=== PATIENT | female | born 2005 | race Caucasian/White ===

== ENCOUNTER 2024-11-20 11:49 | Outpatient (OUT) | payer BC, SELFPAY ==
[2024-11-20 12:49] LABS: BOX Test Reference Lab UNITY; BOX Test Sent Out UNITY
[2024-11-20 12:50] LABS: Basophils Percent Auto 0.3 % (0.2-2.0); Eosinophils Absolute Auto 0.1 10^3/uL (0.0-0.7); Eosinophils Percent Auto 0.9 % (0.9-7.0); Hematocrit 35.7 % (36.0-48.0); Hemoglobin 12.5 g/dL (12.0-16.0); Immature Granulocytes Abs Auto 0.06 10^3/uL (0.00-0.03); Immature Granulocytes Pct Auto 0.5 % (0.0-0.5); Lymphocytes Absolute Auto 2.4 10^3/uL (1.2-3.8); Lymphocytes Percent Auto 19.2 % (20.5-60.0); Mean Corpuscular Hemoglobin 30.8 pg (26.7-34.0); Mean Corpuscular Volume 87.9 fL (81.0-99.0); Mean Platelet Volume 11.7 fL (9.5-13.5); Monocytes Absolute Auto 0.7 10^3/uL (0.3-0.8); Monocytes Percent Auto 5.6 % (1.7-12.0); Neutrophils Percent Auto 73.5 % (43.0-75.0); Platelet Count 210 10^3/uL (150-450); Red Blood Count 4.06 10^6/uL (4.20-5.40); Red Cell Distribution Width 12.6 % (11.0-15.0); White Blood Count 12.2 10^3/uL (4.0-11.0)
[2024-11-20 13:03] LABS: Amphetamine Screen Urine NEGATIVE (NEGATIVE); Barbiturates Screen Urine NEGATIVE (NEGATIVE); Benzodiazepines Screen Urine NEGATIVE (NEGATIVE); Buprenorphine Screen Urine NEGATIVE (NEGATIVE); Cannabinoid Screen Urine POSITIVE (NEGATIVE); Cocaine Screen Urine NEGATIVE (NEGATIVE); Methadone Screen Urine NEGATIVE (NEGATIVE); Methamphetamines Screen Urine NEGATIVE (NEGATIVE); Opiate Screen Urine NEGATIVE (NEGATIVE); Oxycodone Screen Urine NEGATIVE (NEGATIVE); Phencyclidine Screen Urine NEGATIVE (NEGATIVE); Tricyclic Antidepressant Urine NEGATIVE (NEGATIVE)
[2024-11-20 14:19] LABS: Estimated Average Glucose 94 mg/dL; Glycohemoglobin A1C 4.9 % (4.5-6.2)
[2024-11-21 06:08] LABS: HBsAg Screen Negative (Negative); HCV Ab Non Reactive (Non Reactive); HIV Ab/p24 Ag Screen Non Reactive (Non Reactive); Rubella Antibodies, IgG 5.66 index (Immune >0.99)
[2024-11-21 12:09] LABS: Rapid Plasma Reagin, Quant Non Reactive titer (NonRea<1:1)
[2024-11-24 10:12] LABS: Cannabinoid Positive (.); Carboxy THC Conf, MS, UR >750 ng/mL (Cutoff=10)
== END 2024-11-20 11:50 | disposition home or self-care (01) ==
LOC: LAB 11:57
PROVIDERS: Visit Provider Obstetrics & Gynecology
DX: Z34.01 Encounter for supervision of normal first pregnancy, first trimester (principal); Z36.0 Encounter for antenatal screening for chromosomal anomalies; N92.6 Irregular menstruation, unspecified
CPT/HCPCS: 36415; 80307; 80349; 83036; 85025; 86592; 86762; 86803; 86850; 86900; 86901; 87086; 87340; 87389

== ENCOUNTER 2024-12-18 18:08 | Outpatient (REF) | payer BC, SELFPAY ==
--- OUTSIDE RECORDS SUMMARY | 2024-12-18 18:29 | XMS_ITS | CCD ---
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 and neck pain that she sustained yesterday morning. Patient states that she was in an argument with her boyfriend when she fell to the ground crying but instead of hitting the floor she hit her head on the metal bed frame. Reportedly had a loss of consciousness of no more than 30 seconds. Endorses a headache and some blurred vision as well as vomiting. Denies weakness, chest pain, shortness of breath, abdominal pain, bilateral upper extremity pain/weakness/paresthe meghana. PAST MEDICAL HISTORY Diagnosis Date - ADHD (attention deficit hyperactivity disorder) - Depression History reviewed. No pertinent surgical history. No family history on file. Social History Tobacco Use - Smoking status: Some Days Packs/day: .1 Types: Cigarettes - Smokeless tobacco: Never Vaping Use - Vaping Use: current everyday user - Substances: Nicotine - Devices: Disposable Substance and Sexual Activity - Alcohol use: Not Currently Comment: occasionally - Drug use: Yes Types: Marijuana - Sexual activity: Yes Partners: Male control/protection: I.U.D. ALLERGIES Allergen Reactions - Penicillins Anaphylaxis - Sulfa (Sulfonamide * Anaphylaxis Review of Systems Constitutional: Negative for fever. Respiratory: Negative for shortness of breath. Cardiovascular: Negative for chest pain. Gastrointestinal: Positive for nausea and vomiting. Negative for abdominal pain. Genitourinary: Negative. Musculoskeletal: Negative. Skin: Negative. Neurological: Positive for headaches. All other systems reviewed and are negative. Physical Exam Vitals [08/14/23 1212] BP Pulse Temp Temp src Resp SpO2 Weight Height 142/70 63 36.7 ?C (98 ?F) Temporal 17 99 % 70.3 kg (155 lb) 1.651 m (5' 5 ) Physical Exam Vitals and nursing note reviewed. Constitutional: General: She is not in acute distress. Appearance: Normal appearance. She is well-developed. She is not ill-appearing, toxic-appearing or diaphoretic. HENT: Head: Normocephalic. Contusion (forehead) present. No raccoon eyes, Shannon's sign or abrasion. Jaw: There is normal jaw occlusion. Right Ear: Hearing, tympanic membrane, ear canal and external ear normal. No hemotympanum. Left Ear: Hearing, tympanic membrane, ear canal and external ear normal. No hemotympanum. Nose: Nose normal. No nasal deformity or signs of injury. Right Nostril: No foreign body, epistaxis, septal hematoma or occlusion. Left Nostril: No foreign body, septal hematoma or occlusion. Mouth/Throat: Mouth: No injury or lacerations. Dentition: Normal dentition. Pharynx: Oropharynx is clear. Uvula midline. No oropharyngeal exudate. Eyes: Conjunctiva/sclera: Conjunctivae normal. Pupils: Pupils are equal, round, and reactive to light. Cardiovascular: Rate and Rhythm: Normal rate and regular rhythm. Heart sounds: Normal heart sounds. Pulmonary: Effort: Pulmonary effort is normal. No respiratory distress. Breath sounds: Normal breath sounds. No wheezing or rales. Chest: Chest wall: No tenderness. Abdominal: Palpations: Abdomen is soft. Tenderness: There is no abdominal tenderness. Musculoskeletal: General: Normal range of motion. Cervical back: Normal range of motion and neck supple. Tenderness (bilateral cervical paraspinal muscle tenderness) present. No spasms or bony tenderness. Normal range of motion. Thoracic back: Normal. Lumbar back: Normal. Skin: General: Skin is warm. Coloration: Skin is not pale. Findings: Bruising (forehead) present. No erythema or rash. Neurological: Mental Status: She is alert and oriented to person, place, and time. Psychiatric: Behavior: Behavior normal. Thought Content: Thought content normal. Judgment: Judgment normal. Diagnostic Testing ED Labs Ordered and Reviewed HCG QUAL UR - Normal Procedures ED Course / Clinical Impression Clinical Impressions as of 08/14/23 1348 Injury of head, initial encounter Smoker MDM / Disposition / Plan This is a 18-year-old female with a past medical history of tobacco dependency, depression, ADHD; presenting to the ED for acute head injury and neck pain that she sustained yesterday morning. Patient states that she was in an argument with her boyfriend when she fell to the ground crying but instead of hitting the floor she hit her head on the metal bed frame. Reportedly had a loss of consciousness of no more than 30 seconds. Endorses a headac (more content not included)... Normal [facility] HCG Preg Ur Qlon 08-14-2023 HCG ( test) Ql (U) Negative Normal Negative [facility] Comment on above: Order Comment: Speci men Type: URINE SPECIMEN Ordering Facility: [facility] Address: [address] [place] [address], [place] [address] Result Comment: This test is intended to aid in the early detection of . Very dilute urine samples, as indicated by a low specific gravity, may not contain community engagement representative levels of hCG. This test detects intact hCG only. This test does not reliably detect hCG degradation products, including free-beta subunit and beta-core fragment. Therefore, this test may show reduced reactivity in urine after 8 weeks gestation. A number of conditions other than , including trophoblastic disease and certain non-trophoblastic neoplasms cause elevated levels of hCG. As with any assay employing mouse antibodies, the possibility exists for interference by human anti-mouse antibodies (HAMA) in the specimen. The test provides a presumptive diagnosis for . Performed By: #### 2 106-3 #### [facility] [id number] [address] [place] [address] [place] OT Progress Noteon 3 OT Progress Note Therapy Diagnosis Assessed Closed fracture of proximal phalanx of digit of left hand with routine healing, subsequent encounter (V54.12) (V89.859T) Plan Goals: Goals set and discussed today. By discharge SANA JENKINS will achieve the following goals: 1. Patient to demonstrate AROM SF into full ext for functional reaching 2. Patient to demonstrate AROM SF into lose composite fist for dressing and grooming 3. 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 Patient to demonstrate proper technique and competence with HEP 6. Patient to score disability rate less than 10% on Quick DASH , by week 4 Motor Function/Control/Tone: Intervention plan include:. Modalities (ultrasound, paraffin, moist heat, E- stim), edema control, scar management, patient education/instruction/ HEP, manual therapy, Kinesio taping, neuromuscular re-education, work conditioning, therapeutic activity and therapeutic exercises. Frequency and duration: 1 time(s) a week, for 4 weeks. Potential to achieve rehab goals is good. Discharge patient: Achieved all and/or the most significant goal(s). Plan of care was developed with input and agreement by the patient. 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 Progressed strength training to green putty to promote sustained functional grasp. Reviewed HEP with patient, she verbalized and demonstrated understanding. All questions were answered. Discharge patient at this time. Patient was able to complete today's treatment with ease. Reason For Visit Therapy continuation Insurance Insurance reviewed Visit number: 02/22 Approved number of visits: 60 Authorization not required after evaluation Subjective Patient reports:. I can make a fist. I went to work without the splint and did fine. I am doing everything fine. Pain 0/10 rest. Objective Observation: Additional Information: Min edema presented along SF and ulnar side hand. ROM/JointMobility: (Range of Motion in degrees) Wrist: (Arredondo = P! Denotes Pain with Movement) Extension: L Active 65. Flexion: L Active 80. Hand: (Arredondo: Ext/Flex Finger abbrev. IF, MF, RF, SF P! Denotes Pain with Movement + Hypertension, - Extension Deficit) Small: MCP: 0/85, PIP: 0/90, DIP: 0/85. Strength: Hands (Arredondo: P! Denotes Pain with Movement) Hand Dominance: Right Average: 70 lbs on the right and 55 lbs on the left. Outcome Measures: Quick Dash score: at eval 52.27%; at D/C 11.36% Lifting: limited . Patient reports no numbness/tingling. Treatment Time in clinic started at 4:00 pm Time in clinic ended at 4:25 pm Total time in clinic is 25 minutes. Total timed code time is 25 minutes. Therapeutic exercise (32772): timed minutes 25 . Therapist completed gentle SF MCP/PIP/DIP into isolated and composite flex/ext. Green putty school vocational educator with forearm in sup/pro/neutral. Bilateral hands pulling. L bar pressing and pulling. Provided today: a personalized home program. 'Scores and Scales' Signatures Electronically signed by : DOMINIQUE Flores/Jose Alfredo; Feb 15 2023 4:30PM EST (Author) Normal [facility] OT Progress Note Therapy Diagnosis Assessed Closed fracture of proximal phalanx of digit of left hand with routine healing, subsequent encounter (V54.12) (N87.097R) Plan Goals: Goals set and discussed today. By discharge SANA JENKINS will achieve the following goals: 1. Patient to demonstrate AROM SF into full ext for functional reaching 2. Patient to demonstrate AROM SF into lose composite fist for dressing and grooming 3. 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 Patient to demonstrate proper technique and competence with HEP 6. Patient to score disability rate less than 10% on Quick DASH , by week 4 Motor Function/Control/Tone: Intervention plan include:. Modalities (ultrasound, paraffin, moist heat, E- stim), edema control, scar management, patient education/instruction/ HEP, manual therapy, Kinesio taping, neuromuscular re-education, work conditioning, therapeutic activity and therapeutic exercises. Frequency and duration: 1 time(s) a week, for 4 weeks. Potential to achieve rehab goals is good. Discharge patient: Achieved all and/or the most significant goal(s). Plan of care was developed with input and agreement by the patient. 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 Progressed strength training to green putty to promote sustained functional grasp. Reviewed HEP with patient, she verbalized and demonstrated understanding. All questions were answered. Discharge patient at this time. Patient was able to complete today's treatment with ease. Reason For Visit Therapy continuation Insurance Insurance reviewed Visit number: 02/22 Approved number of visits: 60 Authorization not required after evaluation Subjective Patient reports:. I can make a fist. I went to work without the splint and did fine. I am doing everything fine. Pain 0/10 rest. Objective Observation: Additional Information: Min edema presented along SF and ulnar side hand. ROM/JointMobility: (Range of Motion in degrees) Wrist: (Arredondo = P! Denotes Pain with Movement) Extension: L Active 65. Flexion: L Active 80. Hand: (Arredondo: Ext/Flex Finger abbrev. IF, MF, RF, SF P! Denotes Pain with Movement + Hypertension, - Extension Deficit) Small: MCP: 0/85, PIP: 0/90, DIP: 0/85. Strength: Hands (Arredondo: P! Denotes Pain with Movement) Hand Dominance: Right Average: 70 lbs on the right and 55 lbs on the left. Outcome Measures: Quick Dash score: at eval 52.27%; at D/C 11.36% Lifting: limited . Patient reports no numbness/tingling. Treatment Time in clinic started at 4:00 pm Time in clinic ended at 4:25 pm Total time in clinic is 25 minutes. Total timed code time is 25 minutes. Therapeutic exercise (47958): timed minutes 25 . Therapist completed gentle SF MCP/PIP/DIP into isolated and composite flex/ext. Green putty school vocational educator with forearm in sup/pro/neutral. Bilateral hands pulling. L bar pressing and pulling. Provided today: a personalized home program. 'Scores and Scales' Signatures Electronically signed by : DOMINIQUE Flores/Jose Alfredo; Feb 17 2023 4:16PM EST (Author) Normal [facility] OT Progress Noteon 3 OT Progress Note Therapy Diagnosis Assessed Closed fracture of proximal phalanx of digit of left hand with routine healing, subsequent encounter (V54.12) (Z36.599R) Plan Goals: Goals set and discussed today. By discharge SANA JENKINS will achieve the following goals: 1. Patient to demonstrate AROM SF into full ext for functional reaching 2. Patient to demonstrate AROM SF into lose composite fist for dressing and grooming 3. 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 Patient to demonstrate proper technique and competence with HEP 6. Patient to score disability rate less than 10% on Quick DASH , by week 4 Motor Function/Control/Tone: Intervention plan include:. Modalities (ultrasound, paraffin, moist heat, E- stim), edema control, scar management, patient education/instruction/ HEP, manual therapy, Kinesio taping, neuromuscular re-education, work conditioning, therapeutic activity and therapeutic exercises. Frequency and duration: 1 time(s) a week, for 4 weeks. Potential to achieve rehab goals is good. Plan of care was developed with input and agreement by the patient. Assessment Patients Response to Today's Treatment: joint mobility/rom: increased. Patient is progressing appropriately demonstrated by improved AROM of SF PIP into ext and MCP/PIP/DIP into flex. She remains limited by joint stiffness, muscle tightness and weakness. Added more functional simulation tasks to today's session to promote sustained grasp. Patient will continue to benefit from skilled OT for ROM, and later progress to strengthening to support ADL/IADL, work, and leisure activities. Patient was able to complete today's treatment with some difficulty. Reason For Visit Therapy continuation Insurance Insurance reviewed Visit number: 01/22 Approved number of visits: 60 Authorization not required after evaluation Subjective Patient reports:. I have been squeezing and scrub with the lufa with my left hand. I think I am moving better. Pain 0/10 rest. Objective Observation: Additional Information: Min edema presented along SF and ulnar side hand. ROM/JointMobility: (Range of Motion in degrees) Wrist: (Arredondo = P! Denotes Pain with Movement) Extension: L Active 65. Flexion: L Active 80. Hand: (Arredondo: Ext/Flex Finger abbrev. IF, MF, RF, SF P! Denotes Pain with Movement + Hypertension, - Extension Deficit) Small: MCP: 0/65, PIP: -10/85, DIP: 0/75. Strength: Hands (Arredondo: P! Denotes Pain with Movement) Not Tested Due To: Surgery. Outcome Measures: Quick Dash score: at eval 52.27% Carrying: limited . Gripping: limited . Lifting: limited . Manipulation: limited . Pulling: limited . Pushing: limited . Weightbearing Activity: limited . Patient reports no numbness/tingling. Treatment Time in clinic started at 2:15 pm Time in clinic ended at 2:55 pm Total time in clinic is 40 minutes. Total timed code time is 40 minutes. Therapeutic exercise (90187): timed minutes 25 . Therapist completed gentle SF MCP/PIP/DIP into isolated and composite flex/ext. Reversed blocking. Therapeutic Activity (92545): timed minutes 15 . tennis ball toss 2 ways. Hammer 1# yellow putty press and pull. yellow flexbar twist and bend 2 ways. Provided today: a personalized home program. 'Scores and Scales' Signatures Electronically signed by : Ebony Munoz OTR/L; Feb 08 2023 2:57PM EST (Author) Normal [facility] OT Progress Noteon 3 OT Progress Note Therapy Diagnosis Assessed Closed fracture of proximal phalanx of digit of left hand with routine healing, subsequent encounter (V54.12) (S62.848D) Plan Goals: Goals set and discussed today. By discharge SANA JENKINS will achieve the following goals: 1. Patient to demonstrate AROM SF into full ext for functional reaching 2. Patient to demonstrate AROM SF into lose composite fist for dressing and grooming 3. 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 Patient to demonstrate proper technique and competence with HEP 6. Patient to score disability rate less than 10% on Quick DASH , by week 4 Motor Function/Control/Tone: Intervention plan include:. Modalities (ultrasound, paraffin, moist heat, E- stim), edema control, scar management, patient education/instruction/ HEP, manual therapy, Kinesio taping, neuromuscular re-education, work conditioning, therapeutic activity and therapeutic exercises. Frequency and duration: 1 time(s) a week, for 4 weeks. Potential to achieve rehab goals is good. Plan of care was developed with input and agreement by the patient. Assessment Patients Response to Today's Treatment: joint mobility/rom: increased. Patient is progressing appropriately demonstrated by improved AROM of SF MCP into extension, MCP/PIP/DIP into flex. She remains limited by joint stiffness, muscle tightness and weakness. Added functional simulation tasks to today's session to facilitate motion. Patient will continue to benefit from skilled OT for ROM, and later progress to strengthening to support ADL/IADL, work, and leisure activities. Patient was able to complete today's treatment with some difficulty. Reason For Visit Therapy continuation Insurance Insurance reviewed Visit number: 12/23 Approved number of visits: 60 Authorization not required after evaluation Subjective Patient reports:. The pins came out yesterday. I can hold cup now with left hand. I can cut food with it. Pain 0/10 rest. Objective Observation: Additional Information: Min edema presented along SF and ulnar side hand. ROM/JointMobility: (Range of Motion in degrees) Wrist: (Arredondo = P! Denotes Pain with Movement) Extension: L Active 65. Flexion: L Active 80. Hand: (Arredondo: Ext/Flex Finger abbrev. IF, MF, RF, SF P! Denotes Pain with Movement + Hypertension, - Extension Deficit) Small: MCP: 0/55, PIP: -20/70, DIP: 0/55. Strength: Hands (Arredondo: P! Denotes Pain with Movement) Not Tested Due To: Surgery. Outcome Measures: Quick Dash score: at eval 52.27% Carrying: limited . Gripping: limited . Lifting: limited . Manipulation: limited . Pulling: limited . Pushing: limited . Weightbearing Activity: limited . Patient reports no numbness/tingling. Treatment Time in clinic started at 2:25 pm Time in clinic ended at 3:00 pm Total time in clinic is 35 minutes. Total timed code time is 35 minutes. Therapeutic exercise (24289): timed minutes 25 . Therapist completed gentle SF MCP/PIP/DIP into isolated and composite flex/ext. Reversed blocking. Instructed patient to self perform PIP extension stretch on table. Therapeutic Activity (88981): timed minutes 10 . Dexterity ball in hand manipulation CW/CCW with forearm sup and pro. Small objects trapping. Wrist maze. Provided today: a personalized home program. 'Scores and Scales' Signatures Electronically signed by : DOMINIQUE Flores/Jose Alfredo; Feb 01 2023 3:03PM EST (Author) Normal Teachernow Established Visit (Orthopaed ic Surgery)on 01-31-2023 Established Visit (Orthopaedic Surgery) *Orders Xray Finger(s) Min 2 View; Status:Resulted - Requires Verification,Retrospec tive Authorization; Done: [id number] 12:00AM Order Comments:Lt small finger 3v; Due:[id number];Ordered; For:Closed fracture of proximal phalanx of digit of left hand with routine healing, subsequent encounter; Ordered By:Barrera Rueda; Provider Impressions ASSESSMENT: Left small finger proximal phalanx fracture with persistence of fracture plane, now 6-1/2 weeks out. PLAN: Treatment options were discussed. We talked about retaining the pins versus pulling them. At this point these pins will likely become infected. The patient elects for pin removal and to spend more time in the splint. She will keep on with some gentle range of motion exercises. We will see her back in three weeks and hopefully see sufficient evidence of bony bridging to allow for return back to endurance training and strengthening. Upon return to the office, I would like to get three views of the left small finger. Chief Complaint Displaced left small finger proximal phalanx fracture. [facility] lt small finger 12/15/22 xrays today History of Present IllnessThe patient presents today, approximately 6-1/2 weeks status post pinning of left small finger P1 fracture. Vitamin D was checked at the end of December and came back low at 22. She has been supplementing with 50,000 units once weekly. She presents today for ongoing evaluation and treatment. She denies symptoms compatible with pin site infection. *Active Problems Problems Finger fracture, left (816.00) (S62.289Q) Post-op pain (338.18) (G89.18) Vitamin D insufficiency (268.9) (E55.9) Closed fracture of proximal phalanx of digit of left hand with routine healing, subsequent encounter (V54.12) (F70.935Q) Past Medical History The patient's past medical history was reviewed in the electronic medical record. There are no interval updates. The patient is not and not within three months . Allergies Medication Penicillins Recorded By: Maine Killian; 12/14/2022 4:23:14 PM Sulfa Drugs Recorded By: Maine Killian; 12/14/2022 4:23:14 PM Current Meds Medication NameInstruction oxyCODONE-Acetaminophe n 5-325 MG Oral TabletTAKE 1 TABLET EVERY 8 HOURS NEEDED. Vitamin D (Ergocalciferol) 1.25 MG (14185 UT) Oral CapsuleTAKE 1 CAPSULE BY MOUTH 1 TIME EVERY WEEK Physical Exam GENERAL: No acute distress and breathing comfortably; pleasant and cooperative with the examination. EXTREMITIES: Evaluation of the left upper extremity finds the patient to have a palpable radial artery at the wrist with brisk capillary refill to all digits. The patient has intact sensorium to axillary, radial, median and ulnar nerves. There are no open wounds. There are no signs of infection. There is no evidence of lymphedema or lymphatic streaking. The patient has supple compartments of the left arm, forearm and hand. The pin sites look good. No signs of infection. Results/Data Radiology: X-rays of the left small finger show persistence of fracture plane through oblique fracture of left small finger P1. No hardware failure or migration. Signatures Electronically signed by : Irena Lee, ; Feb 02 2023 9:45PM EST (Exchange Teller/Gamal rder) Electronically signed by : Barrera Rueda DO; Feb 03 2023 8:03AM EST Normal [facility] FINGER (S) MIN 2 VIEWSon FINGER (S) MIN 2 VIEWS Patient Name: SANA JENKINS STUDY: FINGER (S) MIN 2 VIEWS; Left; 01/31/2023 11:07 am INDICATION: pain S62.815D: Closed fracture of proximal phalanx of digit of left hand with routine healing, subsequent encounter. ACCESSION NUMBER(S): [id number] ORDERING CLINICIAN: BARRERA RUEDA FINDINGS: X-rays of the left small finger demonstrate healing fracture of proximal phalanx. No hardware failure or migration. Healing incomplete. Electronically signed by: BARRERA RUEDA DO Normal [facility] Radiologyon 01-31-2023 XR Finger 2 Views Normal [facility] [place] Work Phone: OT Progress Noteon 3 OT Progress Note Therapy Diagnosis Assessed Closed fracture of proximal phalanx of digit of left hand with routine healing, subsequent encounter (V54.12) (M14.139G) Plan Goals: Goals set and discussed today. By discharge SANA JENKINS will achieve the following goals: 1. Patient to demonstrate AROM SF into full ext for functional reaching 2. Patient to demonstrate AROM SF into lose composite fist for dressing and grooming 3. 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 Patient to demonstrate proper technique and competence with HEP 6. Patient to score disability rate less than 10% on Quick DASH , by week 4 Motor Function/Control/Tone: Intervention plan include:. Modalities (ultrasound, paraffin, moist heat, E- stim), edema control, scar management, patient education/instruction/ HEP, manual therapy, Kinesio taping, neuromuscular re-education, work conditioning, therapeutic activity and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 Routine Visit Patient presents today for Annual Exam. and Return OB appointment. MEDICATIONS Current Outpatient Medications Medication Instructions MV-Min-Fe Fum-FA-DHA ( 1 PO) 1 each, Daily ALLERGIES Allergies Allergen Reactions Amoxicillin Penicillins Sulfa Antibiotics PROBLEMS Active Ambulatory Problems Diagnosis Date Noted No Active Ambulatory Problems Resolved Ambulatory Problems Diagnosis Date Noted No Resolved Ambulatory Problems No Additional Past Medical History HISTORY PAST MEDICAL HISTORY SOCIAL HISTORY History reviewed. No pertinent past medical history. Social History Tobacco Use Smoking status: Not on file Smokeless tobacco: Not on file Substance Use Topics Alcohol use: Not on file Drug use: Not on file FAMILY HISTORY Family History Problem Relation Name Age of Onset Other (heartattack) Mother Depression Father Suicide Attempts Father Cancer Maternal Grandfather SURGICAL HISTORY Past Surgical History: Procedure Laterality Date FINGER SURGERY REVIEW OF SYSTEMS Review of Systems: Review of Systems Constitutional: Negative. HENT: Negative. Eyes: Negative. Respiratory: Negative. Cardiovascular: Negative. Gastrointestinal: Negative. Genitourinary: Negative. Musculoskeletal: Negative. Skin: Negative. Neurological: Negative. All other systems reviewed and are negative. Hematological: Negative. Endocrine: Negative. Allergic/Immunologic: Negative. OBJECTIVE Objective: Physical Exam Constitutional: Appearance: Normal appearance. Genitourinary: Right Adnexa: not tender and no mass present. Left Adnexa: not tender and no mass present. No cervical discharge. Breasts: Breasts are soft. Right: Normal. Left: Normal. HENT: Head: Normocephalic. Nose: Nose normal. Mouth/Throat: Mouth: Mucous membranes are moist. Cardiovascular: Rate and Rhythm: Normal rate. Pulmonary: Effort: Pulmonary effort is normal. Abdominal: General: Bowel sounds are normal. Palpations: Abdomen is soft. Musculoskeletal: General: Normal range of motion. Cervical back: Normal range of motion. Neurological: General: No focal deficit present. Mental Status: She is alert. Skin: General: Skin is warm and dry. Psychiatric: Mood and Affect: Mood normal. Vitals and nursing note reviewed. Exam conducted with a squaring machine operator present. Vitals: There is no height or weight on file to calculate BMI. BP: 110/60 Patient's last menstrual period was 08/28/2024. ASSESSMENT & PLAN ICD-10-CM 1. 16 weeks gestation of Z3A.16 POCT urinalysis dipstick manually resulted SURESWAB(R) ADVANCED VAGINITIS PLUS, TMA CHLAMYDIA TRACHOMATIS (GENITO/STI) Neisseria gonorrhea DNA probe, direct Alpha fetoprotein, maternal Alpha fetoprotein, maternal CANCELED: POCT urinalysis dipstick manually resulted 2. Second trimester Z34.92 POCT urinalysis dipstick manually resulted SURESWAB(R) ADVANCED VAGINITIS PLUS, TMA CHLAMYDIA TRACHOMATIS (GENITO/STI) Neisseria gonorrhea DNA probe, direct Alpha fetoprotein, maternal Alpha fetoprotein, maternal CANCELED: POCT urinalysis dipstick manually resulted 3. Screening, , for anatomic survey Z36.89 US OB 14+ weeks anatomy scan US OB 14+ weeks anatomy scan 4. Vaginal discharge N89.8 SURESWAB(R) ADVANCED VAGINITIS PLUS, TMA 5. Exposure to STD Z20.2 CHLAMYDIA TRACHOMATIS (GENITO/STI) Neisseria gonorrhea DNA probe, direct 6. Well woman exam with routine gynecological exam Z01.419 Pap Smear Return OB/Annual Exam: Patient presents today for an annual exam/routine obstetrics appointment. Patient is currently 16w0d . Patient is doing well and states she has no complaints. Pap/cultures was obtained without difficulty and patient was given [facility] order to have obtained. Orders Placed This Encounter Procedures US OB 14+ weeks anatomy scan CHLAMYDIA TRACHOMATIS (GENITO/STI) Neisseria gonorrhea DNA probe, direct Alpha fetoprotein, maternal POCT urinalysis dipstick manually resulted Follow Up: Patient is to return to our office in 4 weeks for routine OB appointment documented in this encounter [facility] 11-20-2024 History of Presen t illness Narrative Reason for Appointment: Patient ID: Sana Jenkins is a 19 y.o. female who presents for Routine Visit Patient presents today for Return OB appointment. MEDICATIONS Current Outpatient Medications Medication Instructions ondansetron ODT (ZOFRAN-ODT) 4 mg, Oral, Every 6 hours PRN MV-Min-Fe Fum-FA-DHA ( 1 PO) 1 each, Daily ALLERGIES Allergies Allergen Reactions Amoxicillin Penicillins Sulfa Antibiotics PROBLEMS Active Ambulatory Problems Diagnosis Date Noted No Active Ambulatory Problems Resolved Ambulatory Problems Diagnosis Date Noted No Resolved Ambulatory Problems No Additional Past Medical History HISTORY PAST MEDICAL HISTORY SOCIAL HISTORY No past medical history on file. Social History Tobacco Use Smoking status: Not on file Smokeless tobacco: Not on file Substance Use Topics Alcohol use: Not on file Drug use: Not on file FAMILY HISTORY Family History Problem Relation Name Age of Onset Other (heartattack) Mother Depression Father Suicide Attempts Father Cancer Maternal Grandfather SURGICAL HISTORY No past surgical history on file. REVIEW OF SYSTEMS Review of Systems: Review of Systems All other systems reviewed and are negative. OBJECTIVE Objective: OBGyn Exam Vitals: There is no height or weight on file to calculate BMI. BP: Patient's last menstrual period was 08/28/2024. ASSESSMENT & PLAN ICD-10-CM 1. First trimester Z34.91 POCT urinalysis dipstick manually resulted 2. 12 weeks gestation of Z3A.12 New OB: Patient presents today for 1st time obstetrics appointment with provider. Patient is currently 12w0d . Patients history has been reviewed in great detail including any potential risks. Patient stated she currently has no complaints. Expectations throughout regarding labs, ultrasounds, and appointments have been discussed with the patient in detail. It was reiterated that the patient is to drink 6-8 glasses of water a day, eat 6 small meals a day, do not consume raw or undercooked meat, and stay away from [facility]. Patient has been consulted regarding any further do's and don'ts of . Patient voiced understanding and all questions and concerns were answered. Orders Placed This Encounter Procedures POCT urinalysis dipstick manually resulted Follow Up: Patient is to return in 4 weeks for routine OB appointment. Documented by Rosaura Matias LPN on behalf of: Vinicius Brand DO documented in this encounter [facility] 10-26-2024 History of Presen t illness Narrative Reason for Appointment: Patient ID: Sana Jenkins is a 19 y.o. female who presents for Amenorrhea Patient presents today for a Nurse OB Intake appointment. Patient is 8w3d with a Estimated Date of Delivery: 06/04/25 OB History Para Term AB Living 1 SAB IAB Ectopic Multiple Live Births # Outcome Date GA Lbr Jarek/2nd Weight Sex Type Anes PTL Lv 1 Current Current Medications: has a current medication list which includes the following prescription(s): mv-min-fe fum-fa-dha. Medical History: Active Ambulatory Problems Diagnosis Date Noted No Active Ambulatory Problems Resolved Ambulatory Problems Diagnosis Date Noted No Resolved Ambulatory Problems No Additional Past Medical History Family History Problem Relation Name Age of Onset Other (heartattack) Mother Depression Father Suicide Attempts Father Cancer Maternal Grandfather Social History Tobacco Use Smoking status: Not on file Smokeless tobacco: Not on file Substance Use Topics Alcohol use: Not on file Drug use: Not on file History reviewed. No pertinent surgical history. Allergies Allergen Reactions Amoxicillin Penicillins Sulfa Antibiotics Vitals: There is no height or weight on file to calculate BMI. BP: Patient's last menstrual period was 08/28/2024. Assessment/Plan Diagnoses and all orders for this visit: Missed menses - Type and screen; Future - ABO/Rh; Future - CBC and differential - Hemoglobin A1c - RPR - Rubella antibody, IgG - Hepatitis B surface antigen - Hepatitis C antibody - HIV-1 and HIV-2 antibodies - Urine culture - POCT , urine manually resulted - POCT urinalysis dipstick manually resulted , unspecified gestational age - Type and screen; Future - ABO/Rh; Future - CBC and differential - Hemoglobin A1c - RPR - Rubella antibody, IgG - Hepatitis B surface antigen - Hepatitis C antibody - HIV-1 and HIV-2 antibodies - Rapid drug screen, urine; Future Encounter for supervision of normal first in first trimester - Rapid drug screen, urine; Future Nurse Note: OB Intake: Patient presents today for first OB visit. Patients history has been reviewed in great detail including any potential risks. Patient signed consent forms and patient desires testing in both trimesters. Patient currently has no complaints and has been advised to drink 6-8 glasses of water a day, eat no raw or undercooked meat, and stay away from [facility]. Patient has also been advised to not change litter boxes and eat 6 small meals a day. Patient has been consulted regarding the do's and don'ts of . Patient was given labs and all questions and concerns were answered. Patient given [employer] labs and was sent a script for Zofran. Follow Up: Patient is to return in 4 weeks for routine OB appointment. Follow Up: Patient is to have labs drawn at directed and return to office for initial OB appointment with provider. Patient may call office as needed with any concerns or questions. Nurse Visit Completed by: Brianna Rao LPN documented in this encounter [facility] 07-06-2024 Note Education Materials Caregiving Antibiotic Medicine, Adult Antibiotic medicines are used to treat infections caused by bacteria. These medicines do not work for illnesses caused by viruses. Antibiotics work by killing the bacteria that are making you sick, but they can also have serious side effects. Antibiotics must be used safely and only when needed. When do I need to take antibiotics? You may need antibiotics for: ? A urinary tract infection (UTI). ? Strep throat. ? Bacterial sinus infection. ? Meningitis. ? Serious lung infections. Your health care provider may start you on antibiotics while you are waiting for test results. Tests may include a culture of the throat, urine, blood, or mucus. Your health care provider may change or stop your antibiotic depending on your test results. When are antibiotics not needed? You do not need antibiotics for most common illnesses. These illnesses may be caused by a virus, not by bacteria. You do not need antibiotics for: ? The common cold. ? The flu (influenza). ? Sore throat. ? Discolored mucus. ? Bronchitis. Antibiotics are not always needed for all infections caused by bacteria. Many of these infections clear up on their own. Do not take antibiotics when they are not needed. How long should I take my antibiotic? You must take the entire amount prescribed to you. Take your antibiotics as told by your health care provider. Do not stop taking your antibiotics even if you start to feel better. If you stop taking them too soon: ? You may feel sick again. ? Your infection may get harder to treat. Each course of antibiotics needs a different length of time to work. The length of time may vary from a few days to a few weeks. What if I miss a dose? Try not to miss any doses of medicine. If you miss a dose, call your health care provider or pharmacist for help. Sometimes, it is okay to take the missed dose as soon as possible. Do not take double or extra doses. What are the risks of taking antibiotics? Antibiotics can cause: ? Allergic reactions. ? Nausea. ? Yeast infections. ? Liver problems. Antibiotics can also cause an infection called Clostridioides difficile (C. difficile or C. diff), which causes severe diarrhea. This infection happens when the antibiotics kill the healthy bacteria in your intestines. This allows C. diff to grow. C. diff needs to be treated right away. Let your health care provider know if: ? You have diarrhea while taking an antibiotic. ? You have diarrhea after you stop taking an antibiotic. C. diff infection can start weeks after stopping the antibiotic. Taking an antibiotic also puts you at risk for getting sick in the future with bacteria that do not respond to medicine (antibiotic-resistant infection). Antibiotics can cause bacteria to change so that if the antibiotic is taken again, the medicine cannot kill the bacteria. These infections can be more serious because they are hard, or sometimes impossible, to treat. Do antibiotics affect control? control pills may not work while you are taking antibiotics. If you are taking control pills: ? Keep taking them as usual. ? Use a second form of control, such as a condom, to avoid unwanted . Do this for as long as told by your health care provider. What else should I know about taking antibiotics? ? Take antibiotics exactly as told. ? Take the correct amount of medicine at the same time each day. ? Ask your health care provider: ? How long to wait between doses. ? If you should take your antibiotic with food or water. ? If you should avoid certain foods, drinks, or medicines while taking your antibiotics. ? If you need to watch for any side effects. ? Use only the antibiotics prescribed to you by your health care provider. Do not use antibiotics prescribed for someone else. ? Drink a large glass of water when taking your antibiotics unless told otherwise. Drink enough fluid to keep your urine pale yellow. ? Ask your pharmacist for a dosage syringe, cup, or spoon that correctly measures your antibiotics. ? Ask your pharmacist or health care provider how to safely get rid of leftover medicine. Follow these instructions at home: ? Take your antibiotics as told by your health care provider. Do not stop taking your antibiotics even if you start to feel better. ? Return to your normal activities as told by your health care provider. Ask your health care provider what activities are safe for you. Contact a health care provider if: ? Your symptoms get worse. ? You have new joint pain or muscle aches that begin after starting your antibiotic. ? You have side effects from your antibiotic, such as: ? Stomach pain. ? Diarrhea. ? Nausea. ? White patches in your mouth or throat. Get help right away if: ? You have signs of a severe allergic reaction to antibiotics. If you have any (more content not included)... [facility] 06-22-2024 History of Presen t illness Narrative Summary: well woman Subjective Sana Jenkins is a 19 y.o. female who presents for annual exam. The patient denies complaints. In a stable relationship and denies additional STI testing. 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 The following portions of the patient's history were reviewed and updated as appropriate: allergies, current medications, past family history, past medical history, past social history, past surgical history and problem list. Review of Systems All systems General ROS: Denies fatigue, weight loss, weight gain Psychological ROS: denies mood changes or sleep disturbances Ophthalmic ROS: denies visual disturbances ENT ROS: denies hearing loss Allergy and Immunology ROS: denies nasal congestion Hematological and Lymphatic ROS: denies bruising, swollen lymph nodes or blood clots Endocrine ROS: denies cold intolerance, hot flashes Breast ROS: denies breast tenderness, denies breast lumps or nipple discharge Respiratory ROS: Denies shortness of breath or cough Cardiovascular ROS: Denies chest pain, denies edema of extremities or palpitations Gastrointestinal ROS: Denies nausea, vomiting, constipation or diarrhea. Denies blood in stools. denies heartburn Genito-Urinary ROS: denies abnormal menses, vaginal discharge, leakage of urine or hematuria Musculoskeletal ROS: denies joint pain or swelling Neurological ROS: dizziness, headache, weakness Dermatological ROS: denies hair changes, mole changes, rash Objective Vitals: 06/22/24 1059 BP: 112/62 Body mass index is 25.99 kg/m . General: alert, appears stated age and cooperative Heart: regular rate and rhythm Lungs: clear to auscultation bilaterally Breast: appear normal, no masses, no nipple discharge, no skin changes, no enlarged axillary lymph nodes Abdomen: soft, non-tender, without masses or organomegaly Vulva: normal, Bartholin's, Urethra, [place]'s normal Vagina: normal mucosa, no lesions Cervix: no cervical motion tenderness and no lesions Uterus: normal size, mobile, and nontender Adnexa: normal adnexa and no mass, fullness, tenderness Lymphatics: No abnormally enlarged lymph nodes. Musculoskeletal: Normal. Skin: Skin color, texture, turgor normal. No rashes or lesions Neuro: Grossly normal, Alert and oriented x 3, gait normal. Psychological: normal mood, behavior, speech, dress, and thought processes Assessment/Plan: Sana was seen today for gynecologic exam. Diagnoses and all orders for this visit: Cervical cancer screening - Pap Smear; Future - Chlamydia/Gonorrhoeae by PCR, Fluid; Future Screen for STD (sexually transmitted disease) - Pap Smear; Future - Chlamydia/Gonorrhoeae by PCR, Fluid; Future Well woman exam with routine gynecological exam 1. Discussed SBE. 2. Discussed Calcium and Vitamin D for prevention of osteoporosis. 3. Discussed need for yearly mammogram after 40 yo. 4. Discussed need for colonoscopy after 45 yo. OPAL Johnson 06/22/24 1209 documented in this encounter [facility] 04-06-2024 History of Presen t illness Narrative Summary: IUD removal IUD Removal Procedure Note Patient desires within the year. Counseled that there is a possibility of conceiving at this time. Educated on condom use until ready for . Patient verbalizes understanding. PNV sent to pharmacy Education reviewed regarding vaping. Encouraged to quit. Nicotine gum sent to pharmacy Physical assessment: Heart: normal rate and rhythm Lungs: clear throughout Vagina: [place], moist, no lesions noted Type of IUD: Kyleena Date of insertion: 04/20/2019 Reason for removal: Desires Other relevant history/information: none Procedure Time Out Documentation Procedure Details IUD strings visible: yes Removal: IUD strings grasped and IUD removed intact with gentle traction. The patient tolerated the procedure well. All appropriate instructions regarding removal were reviewed. Plans for contraception: Condoms, plan to conceive within the next year. Other follow-up needed: Annual exam in May after she turns 19. The patient was advised to call for any fever or for prolonged or severe pain or bleeding. She was advised to use OTC ibuprofen as needed for mild to moderate pain. OPAL Johnson 04/06/24 1141 documented in this encounter [facility] 02-15-2023 Note Therapy Diagnosis Assessed Closed fracture of proximal phalanx of digit of left hand with routine healing, subsequent encounter (V54.12) (T48.463B) Plan Goals: Goals set and discussed today. By discharge SANA JENKINS will achieve the following goals: 1. Patient to demonstrate AROM SF into full ext for functional reaching 2. Patient to demonstrate AROM SF into lose composite fist for dressing and grooming 3. 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 Patient to demonstrate proper technique and competence with HEP 6. Patient to score disability rate less than 10% on Quick DASH , by week 4 Motor Function/Control/Tone: Intervention plan include:. Modalities (ultrasound, paraffin, moist heat, E- stim), edema control, scar management, patient education/instruction/HEP, manual therapy, Kinesio taping, neuromuscular re-education, work conditioning, therapeutic activity and therapeutic exercises. Frequency and duration: 1 time(s) a week, for 4 weeks. Potential to achieve rehab goals is good. Discharge patient: Achieved all and/or the most significant goal(s). Plan of care was developed with input and agreement by the patient. 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 Progressed strength training to green putty to promote sustained functional grasp. Reviewed HEP with patient, she verbalized and demonstrated understanding. All questions were answered. Discharge patient at this time. Patient was able to complete today's treatment with ease. Reason For Visit Reason For Visit Free Text_UH: Therapy continuation Insurance Insurance reviewed Visit number: 02/22 Approved number of visits: 60 Authorization not required after evaluation Subjective Patient reports:. I can make a fist. I went to work without the splint and did fine. I am doing everything fine. Pain 0/10 rest. Objective Observation: Additional Information: Min edema presented along SF and ulnar side hand. ROM/JointMobility: (Range of Motion in degrees) Wrist: (Arredondo = P! Denotes Pain with Movement) Extension: L Active 65. Flexion: L Active 80. Hand: (Arredondo: Ext/Flex Finger abbrev. IF, MF, RF, SF P! Denotes Pain with Movement + Hypertension, - Extension Deficit) Small: MCP: 0/85, PIP: 0/90, DIP: 0/85. Strength: Hands (Arredondo: P! Denotes Pain with Movement) Hand Dominance: Right Average: 70 lbs on the right and 55 lbs on the left. Outcome Measures: Quick Dash score: at eval 52.27%; at D/C 11.36% Lifting: limited . Patient reports no numbness/tingling. Treatment Time in clinic started at 4:00 pm Time in clinic ended at 4:25 pm Total time in clinic is 25 minutes. Total timed code time is 25 minutes. Therapeutic exercise (55122): timed minutes 25 . Therapist completed gentle SF MCP/PIP/DIP into isolated and composite flex/ext. Green putty school vocational educator with forearm in sup/pro/neutral. Bilateral hands pulling. L bar pressing and pulling. Provided today: a personalized home program. 'Scores and Scales' Signatures Electronically signed by : DOMINIQUE Flores/Jose Alfredo; Feb 15 2023 4:30PM EST (Author) General Blood 02-15-2023 Note Therapy Diagnosis Assessed Closed fracture of proximal phalanx of digit of left hand with routine healing, subsequent encounter (V54.12) (W01.992Z) Plan Goals: Goals set and discussed today. By discharge SANA JENKINS will achieve the following goals: 1. Patient to demonstrate AROM SF into full ext for functional reaching 2. Patient to demonstrate AROM SF into lose composite fist for dressing and grooming 3. 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 Patient to demonstrate proper technique and competence with HEP 6. Patient to score disability rate less than 10% on Quick DASH , by week 4 Motor Function/Control/Tone: Intervention plan include:. Modalities (ultrasound, paraffin, moist heat, E- stim), edema control, scar management, patient education/instruction/HEP, manual therapy, Kinesio taping, neuromuscular re-education, work conditioning, therapeutic activity and therapeutic exercises. Frequency and duration: 1 time(s) a week, for 4 weeks. Potential to achieve rehab goals is good. Discharge patient: Achieved all and/or the most significant goal(s). Plan of care was developed with input and agreement by the patient. 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 Progressed strength training to green putty to promote sustained functional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
[2024-12-21 18:10] LABS: Age Gdln ACOG Testing Note (.); IGP, rfx Aptima HPV ASCU Note (.)
== END 2024-12-18 18:09 | disposition home or self-care (01) ==
LOC: LAB 18:08
PROVIDERS: Visit Provider Physician Assistant
DX: Z01.419 Encounter for gynecological examination (general) (routine) without abnormal findings (principal)
CPT/HCPCS: 88175

== ENCOUNTER 2025-01-14 10:26 | Outpatient (OUT) | payer BC, SELFPAY ==
[2025-01-17 00:07] LABS: AFP Value 46.8 ng/mL (.); Gest. Age on Collection Date 19.9 weeks (.); Insulin Dep Diabetes No (.); OSBR Risk 1 IN 10000 (.); Results Report (.)
== END 2025-01-14 10:27 | disposition home or self-care (01) ==
LOC: LAB 10:27
PROVIDERS: Visit Provider Physician Assistant
DX: Z34.92 Encounter for supervision of normal pregnancy, unspecified, second trimester (principal); Z3A.16 16 weeks gestation of pregnancy
CPT/HCPCS: 36415; 82105

== ENCOUNTER 2025-03-04 14:49 | Outpatient (OUT) | payer BC, MEDICAID, SELFPAY ==
--- OUTSIDE RECORDS SUMMARY | 2025-03-04 14:54 | XMS_ITS | Clinical Summary ---
Author Organization [facility] Address [address] [place] [address] Care Team Providers Care Railroad Watchman Name Role Phone Unavailable Primary Care Provider Unavailabl e Social History Tobacco Use Types Packs/Day Years Used Date Smoking Tobacco: Never Assessed Comments Unknown Sex and Gender Information Value Date Recorded Sex Assigned at Not on file Legal Sex Female 12:23 AM EDT Gender Identity Not on file Sexual Orientation Not on file Last Filed Vital Signs Vital Sign Reading Time Taken Comments Blood Pressure 109/73 03/13/2021 10:11 AM EDT Pulse 80 03/13/2021 10:11 AM EDT Temperature - - Respiratory Rate - - Oxygen Saturation - - Inhaled Oxygen Concentration - - Weight 81.6 kg (180 lb) 03/13/2021 10:10 AM EDT Height 170.2 cm (5' 7 ) 03/13/2021 10:10 AM EDT Body Mass Index 28.19 03/13/2021 10:10 AM EDT Plan of Treatment Not on file
--- OUTSIDE RECORDS SUMMARY | 2025-03-04 14:54 | XMS_ITS ---
Author Organization [facility] [employer] [facility] (ClinicalSummary Clone) Address Unknown Care Team Providers Care Automatic Vulcanizing Lead Operator Name Role Phone Unavailable Primary Care Physician Unavailab le Results * [UNITY] CARRIER SCREEN Performed by: [employer] Component Value Range Date Sickle Cell Disease/Beta-Thalassemia/Hemo globinopathies carrier screen NEGATIVE 12/01/2024 04:18 am UT Alpha-Thalassemia carrier screen NEGATIVE 12/01/2024 04:18 am UT Cystic Fibrosis carrier screen NEGATIVE 12/01/2024 04:18 am UT Spinal Muscular Atrophy carrier screen NEGATIVE 2 SMN1 copies, SNP not present 12/01/2024 04:18 am UT For detailed report, see PDF See PDF 12/01/2024 04:18 am UT 12/01/2024 04:[address] [facility] Social History Observation Value Start Date End Date
--- OUTSIDE RECORDS SUMMARY | 2025-03-04 14:54 | XMS_ITS ---
Author Organization [facility] (ClinicalSummary Clone) Address Unknown Care Team Providers Care Filter Changing Technician Name Role Phone Unavailable Primary Care Physician Unavailab le Results * [UNITY] ANEUPLOIDY NIPT Performed by: [employer] Component Value Range Date Fraction 9.1% 11/27/2024 04 :46 pm UTC Rh(D) NIPT RhD NOT DETECTED 11/27/2024 04:46 pm UTC Sex Chromosome Aneuploidy NOT DETECTED 04:46 pm UTC Monosomy X LOW RISK <1 in 10,000 2024 04:46 pm UTC Trisomy 13 LOW RISK <1 in 10,000 2024 04:46 pm UTC Trisomy 18 LOW RISK <1 in 10,000 2024 04:46 pm UTC Trisomy 21 LOW RISK <1 in 10,000 2024 04:46 pm UTC Sex MALE 11/27/2024 04:4 6 pm UTC Gestation STRATTON 11/28/19 04:46 pm UTC For detailed report, see PDF See PDF 11/27/2024 04:46 pm UTC 11/27/2024 04:4 6 pm UTC Social History Observation Value Start Date End Date
--- OUTSIDE RECORDS SUMMARY | 2025-03-04 14:54 | XMS_ITS | Clinical Summary ---
Author Organization [employer] [facility] Address [id number] [place] [address] Care Team Providers Care Finished Metal Repairer Name Role Phone Mandy Valentino INSPECTOR METAL FABRICATING-STORAGE BRINE WORKER Primary Care Prov ider Allergies Active Allergy Reactions Criticality Noted Date Comments Cefdinir 02/16/2022 Penicillin G Hives 02/20/2019 Penicillins Anaphylaxis,Other (S ee Comments) High 01/23/2021 Sulfa (Sulfonamide Antibiotics) Hives,Anaphylaxis,Other (See Comments) High 02/20/2019 Medications citalopram (CeleXA) 20 mg tabletIndications :Mixed anxiety depressive disorder Take 1 tablet (20 mg total) by mouth in the morning. 30 tablet 2 2 Active dextroamphetamine -amphetamine (ADDERALL) 20 mg tabletIndications :attention-defici t hyperactivity disorder Take 1 tablet (20 mg total) by mouth in the morning. Indications: attention deficit disorder with hyperactivity. Active PNV 119-iron fum-folic acid 29 mg iron- 1 mg tabletIndications :Encounter for preconception consultation Take 1 tablet by mouth in the morning. 90 tablet 4 4 Active nicotine polacrilex (NICORETTE) 2 mg gumIndications:En counter for smoking cessation counseling Chew 1 each (2 mg total) as directed as needed for smoking cessation (one piece every 1-2 hours for weeks 1-6, 1 piece every 2-4 hrs for weeks 7-9, then one piece every 4-8hrs for weeks 10-12.). 100 each 1 Active Additional Information Patient not taking.Reported on 06/22/2024 Active Problems Problem Noted Date Diagnosed Date Pain 02/16/2022 Resolved Problems Problem Noted Date Diagnosed Date Resolved Date Acute serous otitis media 01/07/2022 Attention deficit disorder o f adult with hyperactivity 01/07/2022 02/16/2022 Overview (01/07/2022): without hyperactivity Hypertrophy of tonsils 01/07/202202/16 Mixed anxiety depressive disorder 01/07/2022 02/16/2022 IUD (intrauterine device) in place 01/08/2021 02/16/2022 Family History Medical History Relation Name Comments Cancer Maternal Grandfather Diabetes Maternal Grandfather Heart disease Mother Relation Name Status Comments Brother Alive Father Alive Maternal Grandfather Maternal Grandmother Alive Mother Paternal Grandfather Paternal Grandmother Social History Tobacco Use Types Packs/Day Years Used Date Smoking Tobacco: Every Day Vaping/E-cigarettes Smokeless Tobacco: Never Tobacco Cessation:Ready to Q uit: Not Asked; Counseling Given: Not Answered Comments:no cigarettes, only vape Alcohol Use Standard Drinks/Week Comments Not Currently 0 (1 standard drink = 0.6 oz pur e alcohol) 1-2 x yr has sips PHQ-2 Answer Date Recorded Total Score 17 01/07/2022 Childcare Answer Date Recorded Childcare Unknown 02/20/2019 Employment Answer Date Recorded Employment Unknown 02/20/2019 Hunger Screening Answer Date Recorded Within the past 12 months we worried whether our food would run out before we got money to buy more. Never True 06/22/2024 Within the past 12 months th e food we bought just didn't last and we didn't have money to get more. Never True 06/22/2024 Purpose - Life Answer Date Recorded Purpose and direction in life Unknown Comments No Sex and Gender Information Value Date Recorded Sex Assigned at Not on file Legal Sex Female 12:00 PM EDT Gender Identity Not on file Sexual Orientation Not on file Last Filed Vital Signs Vital Sign Reading Time Taken Comments Blood Pressure 112/62 06/22/2024 10:59 AM EDT Pulse - - Temperature - - Respiratory Rate - - Oxygen Saturation - - Inhaled Oxygen Concentration - - Weight 70.9 kg (156 lb 3.2 oz) 06/22/2024 10:59 AM EDT Height 165.1 cm (5' 5 ) 06/22/2024 10:59 AM EDT Body Mass Index 25.99 06/22/2024 10:59 AM EDT Plan of Treatment Health Maintenance Due Date Last Done Comments Tobacco Counseling 2003 Depression Screening 2015 Adult BMI Follow Up Plan 2021 Influenza Vaccine 05/20/2025 08/18/2009, 07/14/2009 Adult BMI Screening 06/22/2025 06/22/2024 Chlamydia Screening 06/22/2025 06/22/2024, Tobacco Screening 06/22/2025 06/22/2024 Pap Smear 06/22/2027 06/22/2024 DTaP,Tdap and Td Vaccines (4 - Td or Tdap) 01/12/2034 01/13/2024, 04/02/2016, 2003 Medical Devices Not on file Procedures Procedure Name Priority Date/Time Associated Diagnosis Comments PAP SMEAR Routine 06/22/2024 5:50 AM EDT Cervical cancer screening Screen for STD (sexually transmitted disease) CHLAMYDIA/GONORRHOE AE BY PCR, FLUID Routine 06/22/2024 5:50 AM EDT Cervical cancer screening Screen for STD (sexually transmitted disease) from Last 3 Months or Most Recently Relevant to Health Maintenance Results * Chlamydia/Gonorrhoeae by PCR, Fluid (06/22/2024 5:50 AM EDT) Chlamydia by PCR, Fluid Negative Negative^N egative 06/26/2024 6:[address] [facility] Comment: Chlamydia trachomatis not detected by nucleic acid amplification. This does not exclude the possibility of infection because results are dependent on adequate specimen collection. Gonorrhoeae by PCR, Fluid Negative Negative^N egative 06/26/2024 6:[address] [facility] Comment: Neisseria gonorrhoeae not detected by nucleic acid amplification. This does not exclude the possibility of infection because results are dependent on adequate specimen collection. THINP 06/22/2024 5:50 AM EDT 06/22/2024 6:03 AM EDT Ryanne Trotter INSPECTOR METAL FABRICATING-CNM MICROBIOLOGY - GENERA L ORDERABLES Final Result HEENA [facility] [address] [place] [address], [address] [place] [address] * Pap Smear (06/22/2024 5:50 AM EDT) 06/22/2024 5:50 AM EDT 06/22/2024 6:54 AM EDT Narrative COPATH - 07/14/2024 6:12 PM EDT [facility] [address] [place] [address] Gynecologic Cytology Consultation Patient Name:MONTY JENKINS:2005 (Age: 19)Gender:FTaken:4Reported:07/14/2024hysician(s):Ryanne Trotter, C.N.MFrancesca ([phone])Copy To: Rec. #:[id number]: #[id number] Final Cytologic Interpretation ThinPrep Pap Test (Cervical): Satisfactory for evaluation. A transformation zone component is present. NEGATIVE FOR INTRAEPITHELIAL LESION OR MALIGNANCY. tg/07/14/2024 Interpretation [place] [address], License number: [id number]. Electronically Signed Out By DANIAL Barba (ASCP) Date of Last Menstrual Period: 06/01/24 Other Clinical Conditions: Z12.4 Screening for malignant neoplasm of cervix Z11.3 Encntr screen for infections w sexl mode of transmiss Source of Specimen ThinPrep Pap Test (Cervical) Thin Prep Pap (GARNISHMENT SPECIALIST) Fee Code(s): G0145 The Pap test is a screening test with an inherent, but low, probability of error. The Pap test is primarily effective for the diagnosis and prevention of squamous cell carcinoma. Regular screening is critical for prevention. ThinPrep liquid-based slides, which meet the Data Solutions Architect criteria for automated screening, have been screened by the ThinPrep Imaging System (as of 06/05/07) along with an additional manual rescreening by a regional construction manager and, if indicated, by a pathologist. Ryanne Trotter APRN-CNM PATHOLOGY/CYTOLOGY OR DERABLES Final Result COPATH from Last 3 Months or Most Recently Relevant to Health Maintenance Insurance ANTHEM ANTHEM Care Teams Finished Metal Repairer Relationship Specialty Start Date End Date Mandy Valentino APRN-VINEET [address] [place] [address] PCP - General Internal Medicine 01/07/22
--- OUTSIDE RECORDS SUMMARY | 2025-03-04 14:54 | XMS_ITS | Referral Summary ---
Author Organization [facility] Address [address] [place] [address] Care Team Providers Care Electrical Designer Drafter Name Role Phone Unavailable Primary Care Provider [...]
--- NOTE | 2025-03-04 14:57 | US_ITS ---
The [address] [address] Patient Name: MONTY SAAB MRN: [id number] date: 2005 Sex: F Assigned Patient Location: US Current Patient Location: US Accession/Order Number: [id number] Exam Date: 03/04/2025 21:33 Report Date: 03/04/2025 21:35 At the request of: AMANDA WESTBROOK DO Procedure: US OB incomplete anatomy Follow up obstetrical ultrasound for incomplete anatomy HISTORY: Prior suboptimal assessment of spine imaging Reason cephalic presentation with longitudinal lie. The heart rate 136 bpm. Gestational age 26 weeks 6 days with estimated date of delivery 06/04/2025. There is adequate visualization of the spine. US/US OB incomplete anatomy IMPRESSION: Adequate visualization of spine. Impression dictated by: Yoseph Brandon M.D. 03/04/2025 9:35 PM Dictation Location: [place] [address] Electronically authenticated by: [id number] Y Date: 03/04/2025 21:35
== END 2025-03-04 14:50 | disposition home or self-care (01) ==
LOC: US 14:51
PROVIDERS: Visit Provider Obstetrics & Gynecology
DX: Z36.89 Encounter for other specified antenatal screening (principal); Z3A.26 26 weeks gestation of pregnancy
CPT/HCPCS: 76815

== ENCOUNTER 2025-03-18 11:29 | Outpatient (OUT) | payer BC, MEDICAID, SELFPAY ==
[2025-03-18 12:54] LABS: Basophils Absolute Auto 0.1 10^3/uL (0.0-0.1); Basophils Percent Auto 0.3 % (0.2-2.0); Eosinophils Absolute Auto 0.1 10^3/uL (0.0-0.7); Eosinophils Percent Auto 0.7 % (0.9-7.0); Hemoglobin 11.4 g/dL (12.0-16.0); Immature Granulocytes Abs Auto 0.29 10^3/uL (0.00-0.03); Immature Granulocytes Pct Auto 1.6 % (0.0-0.5); Lymphocytes Absolute Auto 2.1 10^3/uL (1.2-3.8); Lymphocytes Percent Auto 11.6 % (20.5-60.0); Mean Corpuscular HGB Conc 33.5 g/dL (29.9-35.2); Mean Corpuscular Hemoglobin 30.2 pg (26.7-34.0); Mean Corpuscular Volume 89.9 fL (81.0-99.0); Mean Platelet Volume 11.4 fL (9.5-13.5); Monocytes Absolute Auto 1.5 10^3/uL (0.3-0.8); Monocytes Percent Auto 8.3 % (1.7-12.0); Neutrophils Absolute Auto 14.1 10^3/uL (1.4-6.5); Neutrophils Percent Auto 77.5 % (43.0-75.0); Platelet Count 210 10^3/uL (150-450); Red Blood Count 3.78 10^6/uL (4.20-5.40); Red Cell Distribution Width 12.7 % (11.0-15.0); White Blood Count 18.1 10^3/uL (4.0-11.0)
[2025-03-18 13:13] LABS: Glucose 1 Hour 86 mg/dL (<130)
== END 2025-03-18 11:30 | disposition home or self-care (01) ==
LOC: LAB 11:31
PROVIDERS: Visit Provider Obstetrics & Gynecology
DX: Z13.1 Encounter for screening for diabetes mellitus (principal)
CPT/HCPCS: 36415; 82950; 85025

== ENCOUNTER 2025-03-28 13:30 | Outpatient (OUT) | payer BC, MEDICAID, SELFPAY ==
--- OUTSIDE RECORDS SUMMARY | 2025-03-18 10:20 | XMS_ITS | Encounter Summary ---
Author Organization [facility] Address [address] [place] [address] Care Team Providers Care Cloth Brushing And Sueding Supervisor Name Role Phone Unavailable Primary Care Provider Unavailabl e Reason for Visit * Reason Comments Routine Visit Encounter Details Date Type Department Care Team (Late st Contact Info) Description 03/18/2025 10:20 AM EDT Routine [facility] [address] [facility] [place] [phone] Elsie Thomas PA [address] [facility] [address] [place], [facility] Third trimester ([facility]); 28 weeks gestation of ([facility]) Social History Tobacco Use Types Packs/Day Years Used Date Smoking Tobacco: Never Assessed Estimated Date of Delivery Comme nts Yes 06/04/2025 Based on last me nstrual period of 08/28/2024 Sex and Gender Information Value Date Recorded Sex Assigned at Not on file Legal Sex Female 11:51 AM EST Gender Identity Not on file Sexual Orientation Not on file documented as of this encounter Last Filed Vital Signs Vital Sign Reading Time Taken Comments Blood Pressure 110/66 03/18/2025 10:51 AM EDT Pulse - - Temperature - - Respiratory Rate - - Oxygen Saturation - - Inhaled Oxygen Concentration - - Weight 85.2 kg (187 lb 12.8 oz) 025 10:51 AM EDT Height - - Body Mass Index - - documented in this encounter Progress Notes * Imelda Haddad NP - 03/18/2025 10:20 AM EDT Reason for Appointment: Patient ID: Sana Jenkins is a 19 y.o. female who presents for Routine Visit Patient presents today for Return OB appointment. MEDICATIONS Current Outpatient Medications Medication Instructions MV-Min-Fe Fum-FA-DHA ( 1 PO) 1 each, Daily ALLERGIES Allergies Allergen Reactions Penicillins Anaphylaxis and Hives Other Reaction(s): Other (See Comments) Sulfa Antibiotics Anaphylaxis and Hives Other Reaction(s): Other (See Comments) Amoxicillin Cefdinir PROBLEMS Active Ambulatory Problems Diagnosis Date Noted [...] Objective: Physical Exam Constitutional: Appearance: Normal appearance. She is well-developed. Cardiovascular: Rate and Rhythm: Normal rate and regular rhythm. Pulmonary: Effort: Pulmonary effort is normal. Breath sounds: Normal breath sounds. Abdominal: General: Bowel sounds are normal. There is no distension. Palpations: Abdomen is soft. Tenderness: There is no abdominal tenderness. There is no guarding or rebound. Musculoskeletal: General: No swelling. Normal range of motion. Right lower leg: No edema. Left lower leg: No edema. Neurological: Mental Status: She is alert and oriented to person, place, and time. Skin: General: Skin is warm and dry. Psychiatric: Mood and Affect: Mood normal. Behavior: Behavior normal. Vitals and nursing note reviewed. Exam conducted with a kelp or seagrass gatherer present. Vitals: There is no height or weight on file to calculate BMI. BP: 110/66 Patient's last menstrual period was 08/28/2024. ASSESSMENT & PLAN ICD-10-CM 1. Third trimester ([facility]) Z34.93 2. 28 weeks gestation of ([facility]) Z3A.28 Return OB: Patient presents today for a routine obstetrics appointment. Patient is currently 28w6d . Patient states she is doing well but has complaints of being tired due to current . Patient has verbalizes frequent movement. labor precautions was discussed/given and patient was instructed to perform kick counts three times a day. No orders of the defined types were placed in this encounter. Follow Up: Patient is to return to office in 2 week for routine OB appointment. Documented by Imelda Haddad NP on behalf of: Imelda Haddad NP documented in this encounter Plan of Treatment Upcoming Encounters Date Type Department Care Team (Late st Contact Info) Description 04/02/2025 11:10 AM EDT Routine [facility] [address] [place] [address] Vinicius Brand, DO [address] [facility] [place] [address] documented as of this encounter Goals Goal Patient Goal Type Associated Problems Recent Progress Patient-Stated? Author Reminders Care Plan OB Reminders No Open Scheduling, Background documented as of this encounter Visit Diagnoses Diagnosis Third trimester ([facility]) state, incidental 28 weeks gestation of ([facility]) documented in this encounter Additional Health Concerns Active Problems Noted Date Diagnosed Date OB Reminders 11/20/2024 documented as of this encounter
--- OUTSIDE RECORDS SUMMARY | 2025-03-28 13:36 | XMS_ITS | Clinical Summary ---
Author Organization [facility] Address [address] [place] [address] Care Team Providers Care Teacher Lip Reading Name Role Phone Kosta Webber MD Primary Care Provider [phone] Allergies Active Allergy Reactions Criticality Noted Date Comments Amoxicillin 01/23/2021 Penicillins 01/23/2021 Medications No known medications Social History Tobacco Use Types Packs/Day Years Used Date Smoking Tobacco: Never Smokeless Tobacco: Never Alcohol Use Standard Drinks/Week Comments Never 0 (1 standard drink = 0.6 oz pur e alcohol) AUDIT-C Answer Date Recorded Q1: How often do you have a drink containing alc ohol? Never 01/23/2021 Average Number of Drinks Not on file 021 Frequency of Binge Drinking Not on file 03/2021 Comments No Sex and Gender Information Value Date Recorded Sex Assigned at Not on file Legal Sex Female 8:49 AM EDT Gender Identity Not on file Sexual Orientation Not on file Last Filed Vital Signs Vital Sign Reading Time Taken Comments Blood Pressure 129/81 12/15/2022 11:00 AM EDT Pulse 54 12/15/2022 11:00 AM EDT Temperature 36.8 C (98.3 F) 12/15/2022 9:50 AM EDT Respiratory Rate 16 12/15/2022 11:00 AM EDT Oxygen Saturation 99% 12/15/2022 11:00 AM EDT Inhaled Oxygen Concentration - - Weight 79.4 kg (175 lb) 12/15/2022 9:50 AM EDT Height 167.6 cm (5' 6 ) 12/15/2022 9:50 AM EDT Body Mass Index 28.25 12/15/2022 9:50 AM EDT Plan of Treatment Health Maintenance Due Date Last Done Comments Hepatitis B vaccine (2 of 3 - 3-dose series) 2003 2003 Polio vaccine (2 of 3 - 4-do se series) 2003 2003 Depression Screen 2015 Varicella vaccine (1 of 2 - 13+ 2-dose series) 2016 HIV screen 2018 Chlamydia/GC screen 2019 Meningococcal B vaccine (1 o f 2 - Standard) 2019 Hepatitis C screen 2021 COVID-19 Vaccine (1 - 2023-2 5 season) 2024 Pap smear 2024 Flu vaccine (#1) 04/19/2025 08/18/2009, 07/14/2009 DTaP/Tdap/Td vaccine (3 - Td or Tdap) 04/02/2026 04/02/2016, 2003 Hib vaccine Aged Out 2003 No longer eligi ble based on patient's age to complete this topic HPV vaccine Completed 03/06/2019, 10/31/2018, 09/06/2018 Meningococcal (ACWY) vaccine Completed , 04/02/2016 Hepatitis A vaccine Aged Out No longe r eligible based on patient's age to complete this topic Pneumococcal 0-49 years Vaccine Aged Out No longer eligible b ased on patient's age to complete this topic Medical Devices Implanted Type Area Shot Examiner Device Identifier Shelf Expiration Date Model / Serial / Lot K Wire .062 Or 1.6mm - [id number] Implanted:Qty: 2 on 12/15/2022 by Barrera Asencio DO at [facility] Left: Fingers [employer]WD [id number] / / Description:Small Finger Insurance BCBS OUT OF STATE BCBS OUT OF STATE GENERIC AUTO INSURANCE SAYRA GUTIERREZ [id number] Care Teams Teacher Lip Reading Relationship Specialty [place] [address] [place] [id number] PCP - General Family Medicine 01/23/21
--- OUTSIDE RECORDS SUMMARY | 2025-03-28 13:36 | XMS_ITS | Clinical Summary ---
Author Organization [employer] Address [id number] [place] [address] Care Team Providers Care Batchmaker Name Role Phone Mandy Valentino PIPELINES MANAGER-FLORIST DESIGNER Primary Care Prov ider Allergies Active Allergy [...] Negative Negative^N egative 06/26/2024 6:47 AM EDT [facility] Comment: Chlamydia trachomatis not detected by nucleic acid amplification. This does not exclude the possibility of infection because results are dependent on adequate specimen collection. Gonorrhoeae by PCR, Fluid Negative Negative^N egative 06/26/2024 6:47 AM EDT [facility] Comment: Neisseria gonorrhoeae not detected by nucleic acid amplification. This does not exclude the possibility of infection because results are dependent on adequate specimen collection. THINP 06/22/2024 5:50 AM EDT 06/22/2024 6:03 AM EDT Ryanne Trotter PIPELINES MANAGER-CNM MICROBIOLOGY - GENERA L ORDERABLES Final Result HEENA [facility] [address] [place] [address], [address] [place] [address] * Pap Smear (06/22/2024 5:50 AM EDT) 06/22/2024 5:50 AM EDT 06/22/2024 6:54 AM EDT Narrative COPATH - 07/14/2024 6:12 PM EDT [facility] [address] [place] [address] Gynecologic Cytology Consultation Patient Name:MONTY JENKINS:2005 (Age: 19)Gender:FTaken:4Reported:07/14/2024hysician(s):Ryanne Trotter, C.N.MFrancesca ([phone])Copy To: Rec. #:[id number]: #[id number] Final Cytologic Interpretation ThinPrep Pap Test (Cervical): Satisfactory for evaluation. A transformation zone component is present. NEGATIVE FOR INTRAEPITHELIAL LESION OR MALIGNANCY. tg/07/14/2024 Interpretation [place] [address], License number: [id number]. Electronically Signed Out By DANIAL Barba (ASCP) Date of Last Menstrual Period: 06/01/24 Other Clinical Conditions: Z12.4 Screening for malignant neoplasm of cervix Z11.3 Encntr screen for infections w sexl mode of transmiss Source of Specimen ThinPrep Pap Test (Cervical) Thin Prep Pap (CNC LATHE MACHINE OPERATOR) Fee Code(s): G0145 The Pap test is a screening test with an inherent, but low, probability of error. The Pap test is primarily effective for the diagnosis and prevention of squamous cell carcinoma. Regular screening is critical for prevention. ThinPrep liquid-based slides, which meet the Face Boss criteria for automated screening, have been screened by the ThinPrep Imaging System (as of 06/05/07) along with an additional manual rescreening by a musical engineer and, if indicated, by a pathologist. Ryanne Trotter APRN-CNM PATHOLOGY/CYTOLOGY OR DERABLES Final Result COP[facility] from Last 3 Months or Most Recently Relevant to Health Maintenance Insurance ANTHEM ANTHEM Care Teams Batchmaker Relationship Specialty Start Date End Date Mandy Valentino APRN-VINEET [address] [place] [address] PCP - General Internal Medicine 01/07/22
--- OUTSIDE RECORDS SUMMARY | 2025-03-28 13:36 | XMS_ITS | Encounter Summary ---
Author Organization [facility] Address [address] [place] [address] Care Team Providers Care Ed Case Manager Name Role Phone Unavailable Primary Care Provider Unavailabl e Encounter Details Date Type Department Care Team (Late st Contact Info) Description 12/25/2024 Orders Only [facility] [address] [facility] [place] [address] Brianna Rao LPN [address] [facility] [address] [place] [address] Social History Tobacco Use Types Packs/Day Years Used Date Smoking Tobacco: Never Assessed Estimated Date of Delivery Comme nts Yes 06/04/2025 Based on last me nstrual period of 08/28/2024 Sex and Gender Information Value Date Recorded Sex Assigned at Not on file Legal Sex Female 11:51 AM EST Gender Identity Not on file Sexual Orientation Not on file documented as of this encounter Plan of Treatment Upcoming Encounters Date Type Department Care Team (Late st Contact Info) Description 04/02/2025 11:10 AM EDT Routine [facility] [address] [facility] [place] [address] Vinicius Brand DO [address] [place], [place] [id number] documented as of this encounter Goals Goal Patient Goal Type Associated Problems Recent Progress Patient-Stated? Author Reminders Care Plan OB Reminders No Open Scheduling, Background documented as of this encounter Procedures Procedure Name Priority Date/Time Associated Diagnosis Comments PAP SMEAR Routine 12/18/2024 12:00 AM EDT documented in this encounter Results * Pap Smear (12/18/2024 12:00 AM EDT) Swab Cervical swab / Unknown us [facility]ie [facility] CYTOLOGY ORDERABLES Final Result [facility] documented in this encounter Visit Diagnoses Not on filedocumented in this encounter Additional Health Concerns Active Problems Noted Date Diagnosed Date OB Reminders 11/20/2024 documented as of this encounter
--- OUTSIDE RECORDS SUMMARY | 2025-03-28 13:36 | XMS_ITS | Clinical Summary ---
Author Organization [facility] Address [address] [place] [address] Care Team Providers Care Senior Director Of [employer] Name Role Phone Unavailable Primary Care Provider Unavailabl e Allergies Active Allergy Reactions Criticality Noted Date Comments Amoxicillin 10/26/2024 Cefdinir 02/16/2022 Penicillins Anaphylaxis,Hives High 02/20/2019 Other Reaction(s): Other (See Comments) Sulfa Antibiotics Anaphylaxis,Hives High 02/20/2019 Other Reaction(s): Other (See Comments) Medications MV-Min-Fe Fum-FA-DHA ( 1 PO) Take 1 each by mouth Daily Active Encounters Date Type Department Care Team Description 03/20/[address] [facility] [address] [place] [address] Amanda Brand, 03/18/2025 10:20 AM EDT Routine [facility] [address] [place] [address] Elsie Thomas PA Third trimester ([facility]); 28 weeks gestation of ([facility]) 03/18/2025 Clinisync Result Encounter NOMS External Department Unsolicited Amanda Brand, 03/18/2025 Bamboo flowsheet [facility] [address] [place] [address] Elsie Thomas PA 03/04/2025 Clinisync Result Encounter NOMS External Department Unsolicited Amanda Brand, 02/13/2025 10:50 AM EDT Routine [facility] [address] [place] [address] Amanda Brand, Diabetes mellitus screening; 24 weeks gestation of ([facility]); Second trimester ([facility]); Screening, , for anatomic survey ([facility]) 02/13/2025 Bamboo flowsheet [facility] [address] [place] [address] Amanda Brand DO 02/13/2025 Travel 01/16/2025 2:10 PM EDT Routine [facility] [address] [place] [address] Amanda Brand, Second trimester ([facility]); 20 weeks gestation of ([facility]) 01/16/2025 1:00 PM EDT Ancillary Procedure [facility] [address] [place] [address] 01/16/2025 Travel 01/14/2025 Clinisync Result Encounter NOMS External Department Unsolicited Elsie Thomas PA from Last 3 Months Family History Medical History Relation Name Comments Depression Father Suicide Attempts Father Cancer Maternal Grandfather heartattack Mother Relation Name Status Comments Father Maternal Grandfather Mother Social History Tobacco Use Types Packs/Day Years [...] - - Body Mass Index - - Plan of Treatment Upcoming Encounters Date Type Department Care Team (Late st Contact Info) Description 04/02/2025 11:10 AM EDT Routine [facility] B[facility] OB [address] [place] [phone] Amanda Brand, DO [address] [place] [address] Goals Goal Patient Goal Type Associated Problems Recent Progress Patient-Stated? Author Reminders Care Plan OB Reminders No Open Scheduling, Background Procedures Procedure Name Priority Date/Time Associated Diagnosis Comments GLUCOSE 1 HOUR Routine 03/18/2025 12:39 PM EDT ALL CBC WITH AUTO DIFF Routine 03/18/2025 12:39 PM EDT US OB INCOMPLETE ANATOMY 03/04/2025 9:35 PM EDT POCT URINALYSIS DIPSTICK Routine 02/13/2025 12:20 PM EDT 24 weeks gestation of ([facility]) US OB 14+ WEEKS ANATOMY SCAN Routine 01/16/2025 1:53 PM EDT Screening, , for anatomic survey ([facility]) AFP, SERUM, OPEN SPINA BIFIDA Routine 01/14/2025 10:35 AM EDT from Last 3 Months Results * GLUCOSE 1 HOUR (03/18/2025 12:39 PM EDT) GLUCOSE 1 HOUR 86 <130 mg/dL TBH 03/18/2025 12:3 9 PM EDT 03/18/2025 12:49 PM EDT Narrative [facility]INIS[facility] - 03/18/2025 1:17 PM EDT us Amanda Brand DO LAB BLOOD ORDERABLES Final Resul t [facility] * (ABNORMAL) ALL CBC WITH AUTO DIFF (03/18/2025 12:39 PM EDT) [facility] Signature [facility] WBC 18.1(H) 4.0 - 11.0 10 3/uL TBH TBH RBC 3.78(L) 4.20 - 5.40 10 6/uL TBH TBH HGB 11.4(L) 12.0 - 16.0 g/dL TBH TBH HCT 34.0(L) 36.0 - 48.0 % TBH TBH MCV 89.9 81.0 - 99.0 fL TBH TBH MCH 30.2 26.7 - 34.0 pg TBH TBH MCHC 33.5 29.9 - 35.2 g/dL TBH TBH RDW 12.7 11.0 - 15.0 % TBH TBH PLT 210 150 - 450 10 3/uL TBH TBH MPV 11.4 9.5 - 13.5 fL TBH NEUTROPHILS PERCENT AUTO 77.5(H) 43.0 - 75.0 % TBH LYMPHOCYTES PERCENT AUTO 11.6(L) 20.5 - 60.0 % TBH MONOCYTES PERCENT AUTO 8.3 1.7 - 12.0 % TBH TBH EO % 0.7(L) 0.9 - 7.0 % TBH BASOPHILS PERCENT AUTO 0.3 0.2 - 2.0 % TBH IMMATURE GRANULOCYTES PCT AUTO 1.6(H) 0.0 - 0.5 % TBH NEUTROPHILS ABSOLUTE AUTO 14.1(H) 1.4 - 6.5 10 3/uL TBH LYMPHOCYTES ABSOLUTE AUTO 2.1 1.2 - 3.8 10 3/uL TBH MONOCYTES ABSOLUTE AUTO 1.5(H) 0.3 - 0.8 10 3/uL TBH TBH EO # 0.1 0.0 - 0.7 10 3/uL TBH BASOPHILS ABSOLUTE AUTO 0.1 0.0 - 0.1 10 3/uL TBH IMMATURE GRANULOCYTES ABS AUTO 0.29(H) 0.00 - 0.03 10 3/uL [facility]H 03/18/2025 12:3 9 PM EDT 03/18/2025 12:49 PM EDT Narrative CLINISY[facility] - 03/18/2025 12:57 PM EDT us Amanda Cathie DO [facility] Final Result [facility] * US OB INCOMPLETE ANATOMY (03/04/2025 9:35 PM EDT) Anatomical Region Laterality Modality Other 03/04/2025 9:35 PM EDT Narrative 03/04/2025 9:37 [place] [address] Ultrasound Report Signed Patient: SANA JENKINS MR#: [id number] : 2005 Acct:[id number] Age/Sex: 19 / F ADM Date: 03/04/25 Loc: US Attending Dr: Amanda Brand D.O. Ordering Physician: Amanda Brand D.O. Date of Service: 03/04/25 Procedure(s): US OB incomplete anatomy Accession Number(s): [id number] cc: Amanda Brand D.O.; Physician,Non-Staff [place] [address] Patient Name: SANA JENKINS MRN: [id number] date: 2005 Sex: F Assigned Patient Location: US Current Patient Location: Accession/Order Number: [id number] Exam Date: 03/04/2025 21:33 Report Date: 03/04/2025 21:35 At the request of: AMANDA BRAND DO Procedure: US OB incomplete anatomy Follow up obstetrical ultrasound for incomplete anatomy HISTORY: Prior suboptimal assessment of spine imaging Reason cephalic presentation with longitudinal lie. The heart rate 136 bpm. Gestational age 26 weeks 6 days with estimated date of delivery 06/04/2025. There is adequate visualization of the spine. US/US OB incomplete anatomy IMPRESSION: Adequate visualization of spine. Impression dictated by: Yoseph Brandon M.D. 03/04/2025 9:35 PM Dictation Location: [place] [address] Electronically authenticated by: [id number] Y Date: 03/04/2025 21:35 Dictated By: Yoseph Brandon D.O. Signed By: 03/04/252136 DD/ 34 TD/TT: Courier Driver: Procedure Note Radiology, Radiologist, MD - 03/04/2025 [place] [address] Ultrasound Report Signed Patient: SANA JENKINS MMR#: [id number] : 2005Acct:[id number] Age/Sex: 19 / FADM Date: 03/04/25 Loc: US Attending Dr: Amanda Brand D.O. Ordering Physician: Amanda Brand D.O. Date of Service: 03/04/25 Procedure(s): US OB incomplete anatomy Accession Number(s): [id number] cc: Amanda Brand D.O.; Physician,Non-Staff [place] [address] Patient Name: SANA JENKINS MRN: [id number] date: 2005 Sex: F Assigned Patient Location: US Current Patient Location: US Accession/Order Number: [id number] Exam Date: 03/04/2025 21:33 Report Date: 03/04/2025 21:35 At the request of: AMANDA BRAND DO Procedure: US OB incomplete anatomy Follow up obstetrical ultrasound for incomplete anatomy HISTORY: Prior suboptimal assessment of spine imaging Reason cephalic presentation with longitudinal lie. The heart obre605 bpm. Gestational age 26 weeks 6 days with estimated date of delivery 06/04/2025. There is adequate visualization of the spine. US/US OB incomplete anatomy IMPRESSION: Adequate visualization of spine. Impression dictated by: Yoseph Brandon M.D. 03/04/2025 9:35 PM Dictation [facility] Electronically authenticated by: [id number] Y Date: 1:35 Dictated By: Yoseph Brandon D.O. Signed By:03/04/252136 DD/ 34 TD/TT: Courier Driver: us Amanda Cathie DO [facility] IMAGING Final Result * POCT urinalysis dipstick manually resulted (02/13/2025 12:20 PM EDT) Color, UA Yellow Clarity, UA Clear Glucose, UA Negative Negative - 2000(110) ++++ mg/dL Bilirubin, UA Negative Negative - 4(70) +++ mg/dL Ketones, UA Negative Negative - 160(16) ++++ mg/dL Spec Grav, UA 1.025 1 - 1.03 Blood, UA Negative Negative - 50 Ravinder/mcL pH, UA 6.0 5 - 9 Protein, UA Trace Negative - 2000(20) ++++ mg/dL Urobilinogen, UA 0.2 0.2 - 12 mg/dL Leukocytes, UA Moderate Negative - 500+++ Sadi/mcL Nitrite, UA Negative Negative - Positive Urine 02/13/2025 12:2 0 PM EDT [facility] DO POINT OF CARE TEST ENTER/EDIT OR DERABLES Final Result * US OB 14+ weeks anatomy scan (01/16/2025 1:53 PM EDT) Anatomical Region Laterality Modality Body Ultrasound 01/20/2025 8:55 PM EDT Narrative 01/20/2025 8:55 PM EDT EXAM: US OB 14+ WEEKS ANATOMY SCAN HISTORY: Anatomy. FRANCI 06/04/2025. G1. COMPARISON: U/S Ob 10/26/2024. TECHNIQUE: Two-dimensional transabdominal grayscale ultrasound imaging of the pelvis was performed. FINDINGS: Gestation: Single Presentation: Cephalic Cardiac Activity: 141 beats per minute Placental Location: Anterior with no sonographic abnormalities identified. Distance from Placental Tip to Cervix: 7.1 cm Cervical Length: 3.6 cm Amniotic Fluid Index: Not measured, appears visually adequate MEASUREMENTS: BPD: 5.0 cm EGA: 21 weeks 1 days HC: 18.3 cm EGA: 20 weeks 5 days AC: 14.9 cm EGA: 20 weeks 1 days FL: 3.6 cm EGA: 21 weeks 2 days HC/AC Ratio: 1.23 (1.06-1.25) Gestational age by today's ultrasound is 20 weeks 6 days (+/- 11 days gestation). Estimated Weight: 370 grams, +/- 56 grams ( 0 lb 13 oz). Weight Percentile for gestational age: 76 % ANATOMY C-Spine: Not visualized T-Spine: Suboptimally visualized L-Spine: Unremarkable Sacrum: Unremarkable Four Chamber Heart: Unremarkable LVOT: Unremarkable RVOT: Unremarkable Stomach: Unremarkable Kidneys: Unremarkable Bladder: Unremarkable Diaphragm: Unremarkable Cord insertion: Unremarkable Cord vessels: Three Lateral Ventricles: Unremarkable Cerebellum: Unremarkable Cisterna Magna: Unremarkable Posterior Fossa: Unremarkable Right Femur: Unremarkable Left Femur: Unremarkable Right Tib/Fib: Unremarkable Left Tib/Fib: Unremarkable Right Rad/Ulnar: Unremarkable Left Rad/Ulnar: Unremarkable Right Humerus: Unremarkable Left Humerus: Unremarkable Nose/Lips: Unremarkable Profile: Not visualized IMPRESSION: 1. Single, live intrauterine gestation 20 weeks, 1 days by LMP. Today's ultrasound measurements correlate with a gestational age of 20 weeks 6 days. 2. Nonvisualization of the cervical spine. Suboptimal visualization of the thoracic spine. Nonvisualization of the profile. Remaining anatomy appears unremarkable. Interpreted by: Electronically signed by DINA FERNANDEZ II, MD, PHD at 20-Jan-2025 08:54:08 PM [facility] Procedure Note Dina Fernandez MD - 01/20/2025 EXAM: US OB 14+ WEEKS ANATOMY SCAN HISTORY: Anatomy. FRANCI 06/04/2025. G1. COMPARISON: U/S Ob 10/26/2024. TECHNIQUE: Two-dimensional transabdominal grayscale ultrasound imaging ofthe pelvis was performed. FINDINGS: Gestation: Single Presentation: Cephalic Cardiac Activity: 141 beats per minute Placental Location: Anterior with no sonographic abnormalitiesidentified. Distance from Placental Tip to Cervix: 7.1 cm Cervical Length: 3.6 cm Amniotic Fluid Index: Not measured, appears visually adequate MEASUREMENTS: BPD: 5.0 cm EGA: 21 weeks 1 days HC: 18.3 cm EGA: 20 weeks 5 days AC: 14.9 cm EGA: 20 weeks 1 days FL: 3.6 cm EGA: 21 weeks 2 days HC/AC Ratio: 1.23 (1.06-1.25) Gestational age by today's ultrasound is 20 weeks 6 days (+/- 11 daysgestation). Estimated Weight: 370 grams, +/- 56 grams ( 0 lb 13 oz). Weight Percentile for gestational age: 76 % ANATOMY C-Spine: Not visualized T-Spine: Suboptimally visualized L-Spine: Unremarkable Sacrum: Unremarkable Four Chamber Heart: Unremarkable LVOT: Unremarkable RVOT: Unremarkable Stomach: Unremarkable Kidneys: Unremarkable Bladder: Unremarkable Diaphragm: Unremarkable Cord insertion: Unremarkable Cord vessels: Three Lateral Ventricles: Unremarkable Cerebellum: Unremarkable Cisterna Magna: Unremarkable Posterior Fossa: Unremarkable Right Femur: Unremarkable Left Femur: Unremarkable Right Tib/Fib: Unremarkable Left Tib/Fib: Unremarkable Right Rad/Ulnar: Unremarkable Left Rad/Ulnar: Unremarkable Right Humerus: Unremarkable Left Humerus: Unremarkable Nose/Lips: Unremarkable Profile: Not visualized IMPRESSION: 1. Single, live intrauterine gestation 20 weeks, 1 days by LMP. Today'sultrasound measurements correlate with a gestational age of 20 weeks 6days. 2. Nonvisualization of the cervical spine. Suboptimal visualization ofthe thoracic spine. Nonvisualization of the profile. Remaining fetalanatomy appears unremarkable. Interpreted by: Electronically signed by DINA FERNANDEZ II, MD, PHD [id number] 08:54:08 PM [facility] us Elsie ANN IMG OB US PROCEDURES Final Resul t * AFP, SERUM, OPEN SPINA BIFIDA (01/14/2025 10:35 AM EDT) RESULTS Report . [facility] TEST RESULTS: *Screen Negative* . [facility] GEST. AGE ON COLLECTION DATE 19.9 . weeks [facility] GESTAT. AGE BASED ON LMP . [facility] Comment: Recalculations are not recommended when gestational dating by LMP and ultrasound are within 10 days. MAT[age] FRANCI 20.0 . [age] [facility] RACE . [facility] WEIGHT 169 . lbs [facility] INSULIN DEP DIABETES No . [facility] MULTIPLE GESTATION No . [facility] AFP VALUE 46.8 . ng/mL [facility] AFP MOM 0.90 . [facility] [place] [address] [place] [address] . [facility] INTERPRETATION Comment . [facility] Comment: Interpretation: Screen Negative This result is screen negative for OSB. The AFP MoM calculated is based on the gestational age provided. MS-AFP can identify up to 80% of open neural tube defects. Closed neural tube defects and some open defects may not be detected by this test. This test does not screen for Down Syndrome or Trisomy 18. If screening for Down Syndrome or Trisomy 18 is desired, contact [facility] to discuss available options. The [employer] recommends amniocentesis be offered to women age 35 and older. COMMENT: Comment . [facility] Comment: Ching Rodriguez, Ph.D., [facility] Director References: Available Upon Request. Multiples Of Median Cutoffs For AFP Elevations Myers 2.5 Black 2.8 IDD 2.0 Twins 4.5 Abbreviation Definitions IDD - Insulin Dep Diabetes OSBR - Open Spina Bifida Risk For further inquiries contact [facility] Services at [phone]. This test was developed and its performance characteristics determined by [facility]. It has not been cleared or approved by the Food and Drug Administration. Performed at: [facility] [address] [id number] Inter Fold Roll Cutter: Iesha Graham [facility], Phone: [phone] 01/14/2025 10:3 5 AM EDT 01/14/2025 10:37 AM EDT Narrative CLINISYNC - 01/17/2025 12:07 AM EDT N N LMP [id number] 16 N 1 Y 169 N N N N N White/ Elsie ANN LAB BLOOD ORDERABLES Final Resul t from Last 3 Months Additional Health Concerns Active Problems Noted Date Diagnosed Date OB Reminders 11/20/2024 Insurance [employer] [place]
--- OUTSIDE RECORDS SUMMARY | 2025-03-28 13:36 | XMS_ITS | Encounter Summary ---
Author Organization [facility] Address [address] [place] [place] [address] Care Team Providers Care Storage Solutions Architect Name Role Phone Unavailable Primary Care Provider Unavailabl e Encounter Details Date Type Department Care Team (Late st Contact Info) Description 11/20/2024 Abstract [facility] BCP OB [address] [place] [address] Vinicius Brand DO [facility] [place] [address] Social History Tobacco Use Types Packs/Day Years [...] AM EDT Routine [facility] BCP OB [address] [place] [address] Vinicius Brand DO [facility] [place], [place] [id number] documented as of this encounter Goals Goal Patient Goal Type Associated Problems Recent Progress Patient-Stated? Author Reminders Care Plan OB Reminders No Open Scheduling, Background documented as of this encounter Visit Diagnoses Not on filedocumented in this encounter Additional Health Concerns Active Problems Noted Date Diagnosed Date OB Reminders 11/20/2024 documented as of this encounter
--- OUTSIDE RECORDS SUMMARY | 2025-03-28 13:36 | XMS_ITS | Encounter Summary ---
Author Organization [facility] Address [address] [facility] [place] [address] Care Team Providers Care Operations Director Name Role Phone Unavailable Primary Care Provider Unavailabl e Encounter Details Date Type Department Care Team (Late st Contact Info) Description 03/20/2025 Telephone [facility] OB [address] [place] [address] Vinicius Brand, DO [address] [place], [facility] Social History Tobacco Use Types Packs/Day Years Used Date Smoking Tobacco: Never Assessed Estimated Date of Delivery Comme nts Yes 06/04/2025 Based on last me nstrual period of 08/28/2024 Sex and Gender Information Value Date Recorded Sex Assigned at Not on file Legal Sex Female 11:51 AM EST Gender Identity Not on file Sexual Orientation Not on file documented as of this encounter Miscellaneous Notes * Telephone Encounter - Brianna Rao LPN - 03/20/2025 9:02 AM EDT Patient returned call and she states she has not been ill recently and that we will want to recheckthese labs in 1 week. Patient states she will do these around the 7th so these can be reviewed at her appointment. * Telephone Encounter - Brianna Rao LPN - 03/20/2025 8:18 AM EDT Patient was called and voicemail was left for her to return call to office to go over results and see if she was recently sick and that we will repeat labs in 1 week and these were sent to [facility]. documented in this encounter Plan of Treatment Upcoming Encounters Date Type Department Care Team (Late st Contact Info) Description 04/02/2025 11:10 AM EDT Routine [facility] BCP OB [address] [place] [address] Vinicius Brand, DO [address] [place] [address] Scheduled Orders Name Type Priority Associated Diagnoses Orde r Schedule CBC and differential Lab Routine Third trimester ([facility]) Leukocytosis, unspecified type Expected: 03/20/2025 (Approximate), Expires: 03/20/2026 documented as of this encounter Goals Goal Patient Goal Type Associated Problems Recent Progress Patient-Stated? Author Reminders Care Plan OB Reminders No Open Scheduling, Background documented as of this encounter Visit Diagnoses Diagnosis Third trimester ([facility]) state, incidental Leukocytosis, unspecified type documented in this encounter Additional Health Concerns Active Problems Noted Date Diagnosed Date OB Reminders 11/20/2024 documented as of this encounter
--- OUTSIDE RECORDS SUMMARY | 2025-03-28 13:36 | XMS_ITS | Encounter Summary ---
Author Organization [facility] Address [address] [place] [address] Care Team Providers Care Civil Clerk Name Role Phone Unavailable Primary Care Provider Unavailabl e Encounter Details Date Type Department Care Team (Late st Contact Info) Description 03/18/2025 Clinisync Result Encounter NOMS External Department Unsolicited Vinicius Brand DO [facility] [place] [address] Social History Tobacco Use Types Packs/Day Years [...] AM EDT Routine [facility] BCP OB [address] [place] [phone] Vinicius Brand DO [address] [place] [address] [place] [address] documented as of this encounter Goals Goal Patient Goal Type Associated Problems Recent Progress Patient-Stated? Author Reminders Care Plan OB Reminders No Open Scheduling, Background documented as of this encounter Procedures Procedure Name Priority Date/Time Associated Diagnosis Comments GLUCOSE 1 HOUR Routine 03/18/2025 12:39 PM EDT ALL CBC WITH AUTO DIFF Routine 03/18/2025 12:39 PM EDT documented in this encounter Results * GLUCOSE 1 HOUR (03/18/2025 12:39 PM EDT) GLUCOSE 1 HOUR 86 <130 mg/dL [facility] 03/18/2025 12:3 9 PM EDT 03/18/2025 12:49 PM EDT Narrative CLINIS[facility] - 03/18/2025 1:17 PM EDT us Vinicius Cathie DO LAB BLOOD ORDERABLES Final Resul t [facility] * (ABNORMAL) ALL CBC WITH AUTO DIFF (03/18/2025 12:39 PM EDT) TB WBC 18.1(H) 4.0 - 11.0 10 3/uL TBH TBH RBC 3.78(L) 4.20 - 5.40 10 6/uL TBH TBH HGB 11.4(L) 12.0 - 16.0 g/dL TBH TB HCT 34.0(L) 36.0 - 48.0 % TBH TBH MCV 89.9 81.0 - 99.0 fL TBH TB MCH 30.2 26.7 - 34.0 pg TBH TBH MCHC 33.5 29.9 - 35.2 g/dL TB TBH RDW 12.7 11.0 - 15.0 % [...] Narrative CLINISYNC - 03/18/2025 12:57 PM EDT Vinicius Brand DO [facility]IN[facility] Final Result [facility] AT [facility] documented in this encounter Visit Diagnoses Not on filedocumented in this encounter Additional Health Concerns Active Problems Noted Date Diagnosed Date OB Reminders 11/20/2024 documented as of this encounter
--- OUTSIDE RECORDS SUMMARY | 2025-03-28 13:36 | XMS_ITS | Encounter Summary ---
Author Organization [facility] Address [address] [place] [address] Care Team Providers Care Bowl Sander Name Role Phone Unavailable Primary Care Provider Unavailabl e Encounter Details Date Type Department Care Team (Late st Contact Info) Description 11/27/2024 Abstract [facility] BCP OB [address] [place] [address] Vinicius Brand DO [facility] [place] [address] Social History Tobacco Use Types Packs/Day Years [...] AM EDT Routine [facility] BCP OB [address] [place] [address] Vinicius Brand DO [facility] [place], [place] [id number] documented as of this encounter Goals Goal Patient Goal Type Associated Problems Recent Progress Patient-Stated? Author Reminders Care Plan OB Reminders No Open Scheduling, Background documented as of this encounter Visit Diagnoses Not on filedocumented in this encounter Additional Health Concerns Active Problems Noted Date Diagnosed Date OB Reminders 11/20/2024 documented as of this encounter
--- OUTSIDE RECORDS SUMMARY | 2025-03-28 13:36 | XMS_ITS | Clinical Summary ---
Author Organization [facility] Address [address] [place] [address] Care Team Providers Care Quality Control Checker Name Role Phone Unavailable Primary Care Provider [...]
--- OUTSIDE RECORDS SUMMARY | 2025-03-28 13:36 | XMS_ITS | Encounter Summary ---
Author Organization [facility] Address [address] [place] [address] Care Team Providers Care Air Intercept Controller Name Role Phone Unavailable Primary Care Provider Unavailabl e Encounter Details Date Type Department Care Team (Late st Contact Info) Description 03/18/2025 Bamboo flowsheet [facility] BCP OB [address] [place] [address] Elsie Thomas PA [address] [place], [place] [address] Social History Tobacco Use Types Packs/Day Years [...] 11:10 AM EDT Routine [facility] BCP OB [address] [place] [address] [place] [address] Vinicius Brand DO [address] [facility] [facility] [address] [place], [facility] documented as of this encounter Goals Goal Patient Goal Type Associated Problems Recent Progress Patient-Stated? Author Reminders Care Plan OB Reminders No Open Scheduling, Background documented as of this encounter Visit Diagnoses Not on filedocumented in this encounter Additional Health Concerns Active Problems Noted Date Diagnosed Date OB Reminders 11/20/2024 documented as of this encounter
[2025-03-28 13:46] LABS: Hematocrit 33.0 % (36.0-48.0); Hemoglobin 11.2 g/dL (12.0-16.0); Immature Granulocytes Abs Auto 0.17 10^3/uL (0.00-0.03); Immature Granulocytes Pct Auto 1.1 % (0.0-0.5); Lymphocytes Absolute Auto 2.2 10^3/uL (1.2-3.8); Mean Corpuscular HGB Conc 33.9 g/dL (29.9-35.2); Mean Corpuscular Hemoglobin 29.9 pg (26.7-34.0); Mean Corpuscular Volume 88.0 fL (81.0-99.0); Platelet Count 206 10^3/uL (150-450); Red Blood Count 3.75 10^6/uL (4.20-5.40); White Blood Count 15.9 10^3/uL (4.0-11.0)
== END 2025-03-28 13:31 | disposition home or self-care (01) ==
PROVIDERS: Visit Provider Obstetrics & Gynecology
DX: Z34.93 Encounter for supervision of normal pregnancy, unspecified, third trimester (principal); D72.829 Elevated white blood cell count, unspecified
CPT/HCPCS: 36415; 85025

== ENCOUNTER 2025-05-09 14:53 | Outpatient (REF) | payer BC, MEDICAID, SELFPAY ==
--- OUTSIDE RECORDS SUMMARY | 2025-05-01 11:10 | XMS_ITS | Encounter Summary ---
Author Organization [facility] Address [address] [place] [address] Care Team Providers Care Operating Table Assembler Name Role Phone Unavailable Primary Care Provider Unavailabl e Reason for Visit * Reason Comments Routine Visit Encounter Details Date Type Department Care Team (Late st Contact Info) Description 05/01/2025 11:10 AM EDT Routine [facility] [address] [phone] Vinicius Brand DO [address] [place], [place] [id number] 35 weeks gestation of ([facility]); Third trimester ([facility]); Leukocytosis, unspecified type; Other acne Social History Tobacco Use Types Packs/Day Years [...] Sign Reading Time Taken Comments Blood Pressure 120/70 05/01/2025 11:14 AM EDT Pulse - - Temperature - - Respiratory Rate - - Oxygen Saturation - - Inhaled Oxygen Concentration - - Weight 89 kg (196 lb 1.9 oz) 05/01/2025 11:14 AM EDT Height - - Body Mass Index - - documented in this encounter Progress Notes * Susan Gordillo, WEB CONTENT MANAGER - 05/01/2025 11:10 AM EDT Reason for Appointment: Patient ID: [...] nursing note reviewed. Exam conducted with a forestry fire aid present. Vitals: There is no height or weight on file to calculate BMI. BP: 120/70 Patient's last menstrual period was 08/28/2024. ASSESSMENT & PLAN ICD-10-CM 1. 35 weeks gestation of ([facility]) Z3A.35 POCT urinalysis dipstick manually resulted 2. Third trimester ([facility]) Z34.93 POCT urinalysis dipstick manually resulted 3. Leukocytosis, unspecified type D72.829 Return OB: Patient presents today for a routine obstetrics appointment. Patient is currently 35w1d . Patient states she is doing well but has complaints of being tired due to current . Patient has verbalizes frequent movement. labor precautions was discussed/given and patient was instructed to perform kick counts three times a day. Orders Placed This Encounter Procedures POCT urinalysis dipstick manually resulted Follow Up: Patient is to return to office in 1 week for routine OB appointment. Documented by Susan Gordillo LPN on behalf of: Vinicius Brand DO documented in this encounter Plan of Treatment Upcoming Encounters Date Type Department Care Team (Late st Contact Info) Description 05/16/2025 9:00 AM EDT Routine [facility] [address] [place] [phone] Vinicius Brand DO [address] [place], [place] [id number] documented as of this encounter Goals Goal Patient Goal Type Associated Problems Recent Progress Patient-Stated? Author Reminders Care Plan OB Reminders No Open Scheduling, Background documented as of this encounter Procedures Procedure Name Priority Date/Time Associated Diagnosis Comments POCT URINALYSIS DIPSTICK Routine 05/01/2025 11:20 AM EDT 35 weeks gestation of ([facility]) Third trimester ([facility]) documented in this encounter Results * (ABNORMAL) POCT urinalysis dipstick manually resulted (05/01/2025 11:20 AM EDT) Color, UA Yellow Clarity, UA Clear Glucose, UA Negative Negative - 1999(110) ++++ mg/dL Bilirubin, UA Negative Negative - 4(70) +++ mg/dL Ketones, UA Negative Negative - 160(16) ++++ mg/dL Spec Grav, UA 1.015 1 - 1.03 Blood, UA Negative Negative - 50 Ravinder/mcL pH, UA 7.5 5 - 9 Protein, UA Positive Negative - 1999(20) ++++ mg/dL Urobilinogen, UA 1.0 0.2 - 12 mg/dL Leukocytes, UA Positive Negative - 500+++ Sadi/mcL Nitrite, UA Negative Negative - Positive Urine 05/01/2025 11:2 0 AM EDT Vinicius Brand DO POINT OF CARE TEST ENTER/EDIT OR DERABLES Final Result documented in this encounter Visit Diagnoses Diagnosis 35 weeks gestation of ([facility]) Third trimester ([facility]) state, incidental Leukocytosis, unspecified type Other acne documented in this encounter Additional Health Concerns Active Problems Noted Date Diagnosed Date OB Reminders 11/20/2024 documented as of this encounter
--- OUTSIDE RECORDS SUMMARY | 2025-05-09 08:50 | XMS_ITS | Encounter Summary ---
Author Organization [facility] Address [address] [place] [address] Care Team Providers Care Civil Engineering Specialist Name Role Phone Unavailable Primary Care Provider Unavailabl e Reason for Visit * Reason Comments Routine Visit Encounter Details Date Type Department Care Team (Late st Contact Info) Description 05/09/2025 8:50 AM EDT Routine [facility] [address] [place] [phone] Elsie Thomas PA [address] [place], [facility] Third trimester ([facility]); 35 weeks gestation of ([facility]) Social History Tobacco Use Types Packs/Day Years [...] Sign Reading Time Taken Comments Blood Pressure 106/70 05/09/2025 9:39 AM EDT Pulse - - Temperature - - Respiratory Rate - - Oxygen Saturation - - Inhaled Oxygen Concentration - - Weight 91.1 kg (200 lb 12.8 oz) 05/09/2025 9:39 AM EDT Height - - Body Mass Index - - documented in this encounter Progress Notes * SETH You - 05/09/2025 8:50 AM EDT Reason for Appointment: Patient ID: Sana Jenkins is a 19 y.o. female who presents for Routine Visit Patient presents today for Return OB appointment. MEDICATIONS Current Outpatient Medications Medication Instructions clindamycin (Cleocin-T) 1 % lotion Topical, 2 times daily MV-Min-Fe Fum-FA-DHA ( 1 PO) 1 each, [...] Exam Constitutional: Appearance: Normal appearance. She is normal weight. HENT: Head: Normocephalic. Cardiovascular: Rate and Rhythm: Normal rate. Pulses: Normal pulses. Pulmonary: Effort: Pulmonary effort is normal. Breath sounds: Normal breath sounds. Abdominal: Palpations: Abdomen is soft. Musculoskeletal: General: Normal range of motion. Neurological: General: No focal deficit present. Mental Status: She is alert and oriented to person, place, and time. Psychiatric: Mood and Affect: Mood normal. Behavior: Behavior normal. Thought Content: Thought content normal. Judgment: Judgment normal. Vitals and nursing note reviewed. Vitals: There is no height or weight on file to calculate BMI. BP: 106/70 Patient's last menstrual period was 08/28/2024. ASSESSMENT & PLAN ICD-10-CM 1. Third trimester ([facility]) Z34.93 POCT urinalysis dipstick manually resulted CULTURE, GROUP B STREP WITH SUSCEPTIBLITY CULTURE, GROUP B STREP WITH SUSCEPTIBLITY 2. 35 weeks gestation of ([facility]) Z3A.35 POCT urinalysis dipstick manually resulted Patient is doing well but has complaints of being tired and having maternal discomfort due to . Patient verbalized frequent movement and was instructed to perform kick counts three times per day. labor precautions were given, LARC consent was signed/declined, and GBS was obtained. Cervical check was performed and patient is 0cm dilated. Orders Placed This Encounter Procedures CULTURE, GROUP B STREP WITH SUSCEPTIBLITY POCT urinalysis dipstick manually resulted Follow Up: Patient is to return to office in 1 week for routine OB appointment Documented by SETH You on behalf of: SETH You documented in this encounter Plan of Treatment Upcoming Encounters Date Type Department Care Team (Late st Contact Info) Description 05/16/2025 9:00 AM EDT Routine [facility] [address] [place] [phone] Vinicius Brand DO [address] [place], [place] [id number] Scheduled Orders Name Type Priority Associated Diagnoses Orde r Schedule CULTURE, GROUP B STREP WITH SUSCEPTIBLITY Lab Routine Third trimester ([facility]) Expected: 05/09/2025, Expires: 05/09/2026 documented as of this encounter Goals Goal Patient Goal Type Associated Problems Recent Progress Patient-Stated? Author Reminders Care Plan OB Reminders No Open Scheduling, Background documented as of this encounter Procedures Procedure Name Priority Date/Time Associated Diagnosis Comments POCT URINALYSIS DIPSTICK Routine 05/09/2025 9:46 AM EDT Third trimester ([facility]) 35 weeks gestation of ([facility]) documented in this encounter Results * (ABNORMAL) POCT urinalysis dipstick manually resulted (05/09/2025 9:46 AM EDT) Color, UA Yellow Clarity, UA Clear Glucose, UA Negative Negative - 2000(110) ++++ mg/dL Bilirubin, UA Negative Negative - 4(70) +++ mg/dL Ketones, UA Negative Negative - 160(16) ++++ mg/dL Spec Grav, UA 1.015 1 - 1.03 Blood, UA Negative Negative - 50 Ravinder/mcL pH, UA 6.0 5 - 9 Protein, UA Negative Negative - 1999(20) ++++ mg/dL Urobilinogen, UA 1.0 0.2 - 12 mg/dL Leukocytes, UA Positive Negative - 500+++ Sadi/mcL Nitrite, UA Negative Negative - Positive Urine 05/09/2025 9:46 AM EDT Elsie ANN POINT OF CARE TEST ENTER/EDIT OR DERABLES Final Result documented in this encounter Visit Diagnoses Diagnosis Third trimester ([facility]) state, incidental 35 weeks gestation of ([facility]) documented in this encounter Additional Health Concerns Active Problems Noted Date Diagnosed Date OB Reminders 11/20/2024 documented as of this encounter
--- OUTSIDE RECORDS SUMMARY | 2025-05-09 14:57 | XMS_ITS | Clinical Summary ---
Author Organization [facility] Address [address] [place] [address], [address] [place] [address] Care Team Providers Care Optical Assistant Name Role Phone Kosta Webber MD Primary Care Provider [phone] Allergies Active Allergy Reactions Criticality Noted Date [...] this topic Medical Devices Implanted Type Area Link Trainer Operator Device Identifier Shelf Expiration Date Model / Serial / Lot K Wire .062 Or 1.6mm - [id number] Implanted:Qty: 2 on 12/15/2022 by Barrera Asencio DO at [facility] Left: Fingers [employer]WD [id number] / / Description:Small Finger Insurance BCBS OUT OF STATE BCBS OUT OF STATE GENERIC AUTO INSURANCE SAYRA GUTIERREZ [id number] Care Teams Optical Assistant Relationship Specialty [place] [address] [phone] PCP - General Family Medicine 01/23/21
--- OUTSIDE RECORDS SUMMARY | 2025-05-09 14:57 | XMS_ITS | Encounter Summary ---
Author Organization [facility] Address [address] [facility] [place] [address] Care Team Providers Care Assistant Administrator Name Role Phone Unavailable Primary Care Provider Unavailabl e Encounter Details Date Type Department Care Team (Late st Contact Info) Description 11/20/2024 Abstract [facility] [address] [facility] [place] [phone] Vinicius Brand DO [address] [place], [place] [address] Social History Tobacco Use Types Packs/Day Years [...] Info) Description 05/16/2025 9:00 AM EDT Routine [facility] [address] [place] [phone] Vinicius Brand DO [address] [place], [place] [phone] documented as of this encounter Goals Goal Patient Goal Type Associated Problems Recent Progress Patient-Stated? Author Reminders Care Plan OB Reminders No Open Scheduling, Background documented as of this encounter Visit Diagnoses Not on filedocumented in this encounter Additional Health Concerns Active Problems Noted Date Diagnosed Date OB Reminders 11/20/2024 documented as of this encounter
--- OUTSIDE RECORDS SUMMARY | 2025-05-09 14:57 | XMS_ITS | Encounter Summary ---
Author Organization [facility] Address [address] [place] [address] Care Team Providers Care Beer Maker Name Role Phone Unavailable Primary Care Provider Unavailabl e Encounter Details Date Type Department Care Team (Late st Contact Info) Description 05/09/2025 Bamboo flowsheet [facility] [address] [place] [address] Elsie Thomas PA [address] [place], [place] [address] Social History Tobacco Use Types Packs/Day Years [...] Info) Description 05/16/2025 9:00 AM EDT Routine [facility] [address] [place] [address] Vinicius Brand DO [address] [place], [facility]11 documented as of this encounter Goals Goal Patient Goal Type Associated Problems Recent Progress Patient-Stated? Author Reminders Care Plan OB Reminders No Open Scheduling, Background documented as of this encounter Visit Diagnoses Not on filedocumented in this encounter Additional Health Concerns Active Problems Noted Date Diagnosed Date OB Reminders 11/20/2024 documented as of this encounter
--- OUTSIDE RECORDS SUMMARY | 2025-05-09 14:57 | XMS_ITS | Encounter Summary ---
Author Organization [facility] Address [address] [place] [address] Care Team Providers Care Chief Wellness Officer Name Role Phone Unavailable Primary Care Provider Unavailabl e Encounter Details Date Type Department Care Team (Late st Contact Info) Description 05/01/2025 Bamboo flowsheet [facility] [address] [place] [phone] Vinicius Brand DO [address] [place], [place] [address] Social History Tobacco Use Types Packs/Day Years [...] 9:00 AM EDT Routine [facility] [address] [facility] [place] [phone] Vinicius Brand DO [address] [place], [facility] documented as of this encounter Goals Goal Patient Goal Type Associated Problems Recent Progress Patient-Stated? Author Reminders Care Plan OB Reminders No Open Scheduling, Background documented as of this encounter Visit Diagnoses Not on filedocumented in this encounter Additional Health Concerns Active Problems Noted Date Diagnosed Date OB Reminders 11/20/2024 documented as of this encounter
--- OUTSIDE RECORDS SUMMARY | 2025-05-09 14:57 | XMS_ITS | Encounter Summary ---
Author Organization [facility] Address [address] [facility] [place] [address] Care Team Providers Care Weighter Name Role Phone Unavailable Primary Care Provider Unavailabl e Encounter Details Date Type Department Care Team (Late st Contact Info) Description 11/27/2024 Abstract [facility] [address] [phone] Vinicius Brand DO [address] [place], [place] [address] Social History Tobacco Use Types Packs/Day Years [...] 9:00 AM EDT Routine [facility] [address] [place] [phone] Vinicius Brand DO [address] [place], [place] [phone] documented as of this encounter Goals Goal Patient Goal Type Associated Problems Recent Progress Patient-Stated? Author Reminders Care Plan OB Reminders No Open Scheduling, Background documented as of this encounter Visit Diagnoses Not on filedocumented in this encounter Additional Health Concerns Active Problems Noted Date Diagnosed Date OB Reminders 11/20/2024 documented as of this encounter
--- OUTSIDE RECORDS SUMMARY | 2025-05-09 14:57 | XMS_ITS | Encounter Summary ---
Author Organization [facility] Address [address] [facility] [place] [address] Care Team Providers Care Chicken Picker Name Role Phone Unavailable Primary Care Provider Unavailabl e Encounter Details Date Type Department Care Team (Late st Contact Info) Description 12/25/2024 Orders Only [facility] [address] [place] [address] Brianna Rao LPN [address] [facility] [place] [address] Social History Tobacco Use Types Packs/Day Years [...] 9:00 AM EDT Routine [facility] [address] [place] [address] Vinicius Brand DO [address] [place], [place] [phone] documented as of this encounter Goals Goal Patient Goal Type Associated Problems Recent Progress Patient-Stated? Author Reminders Care Plan OB Reminders No Open Scheduling, Background documented as of this encounter Procedures Procedure Name Priority Date/Time Associated Diagnosis Comments PAP SMEAR Routine 12/18/2024 12:00 AM EDT documented in this encounter Results * Pap Smear (12/18/2024 12:00 AM EDT) Swab Cervical swab / Unknown Cathie Nurse [facility] Ob LAB CYTOLOGY ORDERABLES Final Result EXTERNAL LAB documented in this encounter Visit Diagnoses Not on filedocumented in this encounter Additional Health Concerns Active Problems Noted Date Diagnosed Date OB Reminders 11/20/2024 documented as of this encounter
--- OUTSIDE RECORDS SUMMARY | 2025-05-09 14:57 | XMS_ITS | Clinical Summary ---
Author Organization [facility] Address [address] [place] [address] Care Team Providers Care Cleaning Custodian Name Role Phone Unavailable Primary Care Provider Unavailabl e Allergies Active Allergy Reactions Criticality Noted Date Comments Amoxicillin 10/26/2024 Cefdinir 02/16/2022 Penicillins Anaphylaxis,Hives High 02/20/2019 Other Reaction(s): Other (See Comments) Sulfa Antibiotics Anaphylaxis,Hives High 02/20/2019 Other Reaction(s): Other (See Comments) Medications MV-Min-Fe Fum-FA-DHA ( 1 PO) Take 1 each by mouth Daily Active clindamycin (Cleocin-T) 1 % lotionIndicatio ns:Other acne Apply topically in the morning and before bedtime. 60 mL 05/01/20 26 Active Encounters Date Type Department Care Team Description 05/09/2025 8:50 AM EDT Routine [facility] [address] [place] [address] Elsie Thomas PA Third trimester ([facility]); 35 weeks gestation of ([facility]) 05/09/2025 Bamboo flowsheet [facility] [address] [place] [address] Elsie Thomas PA 05/01/2025 11:10 AM EDT Routine [facility] [address] [place] [address] Amanda Brand, 35 weeks gestation of ([facility]); Third trimester ([facility]); Leukocytosis, unspecified type; Other acne 05/01/2025 Bamboo flowsheet [facility] [address] [place] [address] Amanda Brand, 04/16/2025 10:50 AM EDT Routine [facility] [place] [address] Elsie Thomas PA Third trimester ([facility]); 33 weeks gestation of ([facility]) 04/16/2025 10:00 AM EDT Ancillary Procedure [facility] [place] [address] Size of fetus inconsistent with dates in second trimester ([facility]) 04/02/2025 11:10 AM EDT Routine [facility] [address] [place] [address] Amanda Brand, Size of fetus inconsistent with dates in second trimester ([facility]) (Primary Dx); Third trimester ([facility]); 31 weeks gestation of ([facility]) 04/02/2025 Bamboo flowsheet [facility] [address] [facility] [place] [address] Amanda Brand, 03/28/2025 Clinisync Result Encounter [facility] External Department Unsolicited Amanda Brand, 03/20/2025 Telephone [facility] [place] [address] Amanda Brand, 03/18/2025 10:20 AM EDT Routine [facility] [address] [place] [address] Elsie Thomas PA Third trimester ([facility]); 28 weeks gestation of ([facility]) 03/18/2025 Clinisync Result Encounter [facility] External Department Unsolicited Amanda Brand, 03/18/2025 Bamboo flowsheet [facility] [address] Elsie Thomas PA 03/04/2025 Clinisync Result Encounter [facility] External Department Unsolicited Amanda Brand, 02/13/2025 10:50 AM ED[place] [address] Amanda Brand, DO Diabetes mellitus screening; 24 weeks gestation of ([facility]); Second trimester ([facility]); Screening, , for anatomic survey ([facility]) 02/13/2025 Bamboo flowsheet [facility] [place] [address] Amanda Brand, 02/13/2025 Travel from Last 3 Months Family History Medical [...] AM EDT Routine [facility] [address] [place] [address] Amanda Brand, DO [address] [place] [address] Goals Goal Patient Goal Type Associated Problems Recent Progress Patient-Stated? Author Reminders Care Plan OB Reminders No Open Scheduling, Background Procedures Procedure Name Priority Date/Time Associated Diagnosis Comments POCT URINALYSIS DIPSTICK Routine 05/09/2025 9:46 AM EDT Third trimester ([facility]) 35 weeks gestation of ([facility] POCT URINALYSIS DIPSTICK Routine 05/01/2025 11:20 AM EDT 35 weeks gestation of ([facility]) Third trimester ([facility]) POCT URINALYSIS DIPSTICK Routine 04/16/2025 11:12 AM EDT Third trimester ([facility]) US OB FOLLOW UP TRANSABDOMINAL APPROACH Routine 04/16/2025 10:41 AM EDT Size of fetus inconsistent with dates in second trimester ([facility]) POCT URINALYSIS DIPSTICK Routine 04/02/2025 11:32 AM EDT Third trimester ([facility]) ALL CBC WITH AUTO DIFF Routine 1:39 PM EDT GLUCOSE 1 HOUR Routine 03/18/2025 12:39 PM EDT ALL CBC WITH AUTO DIFF Routine 12:39 PM EDT US OB INCOMPLETE ANATOMY 03/04/2025 9:35 PM EDT POCT URINALYSIS DIPSTICK Routine 02/13/2025 12:20 PM EDT 24 weeks gestation of ([facility]) from Last 3 Months Results * (ABNORMAL) POCT urinalysis dipstick manually resulted (05/09/2025 9:46 AM EDT) Only the most recent of5 resultswithin the time period is included. Color, UA Yellow Clarity, UA Clear Glucose, UA Negative Negative - 2000(110) ++++ mg/dL Bilirubin, UA Negative Negative - 4(70) +++ mg/dL Ketones, UA Negative Negative - 160(16) ++++ mg/dL Spec Grav, UA 1.015 1 - 1.03 Blood, UA Negative Negative - 50 Ravinder/mcL pH, UA 6.0 5 - 9 Protein, UA Negative Negative - 2000(20) ++++ mg/dL Urobilinogen, UA 1.0 0.2 - 12 mg/dL Leukocytes, UA Positive Negative - 500+++ Sadi/mcL Nitrite, UA Negative Negative - Positive Urine 05/09/2025 9:46 AM EDT us Elsie ANN POINT OF CARE TEST ENTER/EDIT OR DERABLES Final Result * US OB follow up transabdominal approach (04/16/2025 10:41 AM EDT) Anatomical Region Laterality Modality Body Ultrasound 04/17/2025 7:36 AM EDT Narrative 04/17/2025 7:36 AM EDT EXAM: US OB FOLLOW UP TRANSABDOMINAL APPROACH HISTORY: Inconsistent size. COMPARISON: Ob ultrasound 03/04/2025. TECHNIQUE: Two-dimensional transabdominal grayscale ultrasound imaging of the pelvis was performed. FINDINGS: Gestation: Single Presentation: Cephalic Cardiac Activity: 122 beats per minute Amniotic Fluid Index: 10.3 cm MEASUREMENTS: BPD: 8.6 cm EGA: 34 weeks 4 days HC: 29.8 cm EGA: 33 weeks 0 days AC: 29.3 cm EGA: 33 weeks 2 days FL: 6.5 cm EGA: 33 weeks 3 days HC/AC Ratio: 1.02 The gestational age by today's ultrasound is 33 weeks 4 days (+/- 16 days gestation). Estimated Weight: 2191 grams, +/- 329 grams ( 4 lb 13 oz). Weight Percentile for gestational age: 54 % IMPRESSION: 1. Single, live intrauterine gestation 33 weeks, 0 days by LMP. Today's ultrasound measurements correlate with a gestational age of 33 weeks 4 days. Estimated weight is 2191 grams, +/- 329 grams ( 4 lb 13 oz) which correlates to 54 %. FRANCI by today's ultrasound is 05/31/2025. Interpreted by: Electronically signed by DINA FERNANDEZ II, MD, PHD at 17-Apr-2025 07:34:19 AM [facility] Procedure Note Dina Fernandez MD - 04/17/2025 EXAM: US OB FOLLOW UP TRANSABDOMINAL APPROACH HISTORY: Inconsistent size. COMPARISON: Ob ultrasound 03/04/2025. TECHNIQUE: Two-dimensional transabdominal grayscale ultrasound imaging ofthe pelvis was performed. FINDINGS: Gestation: Single Presentation: Cephalic Cardiac Activity: 122 beats per minute Amniotic Fluid Index: 10.3 cm MEASUREMENTS: BPD: 8.6 cm EGA: 34 weeks 4 days HC: 29.8 cm EGA: 33 weeks 0 days AC: 29.3 cm EGA: 33 weeks 2 days FL: 6.5 cm EGA: 33 weeks 3 days HC/AC Ratio: 1.02 The gestational age by today's ultrasound is 33 weeks 4 days (+/- 16 daysgestation). Estimated Weight: 2191 grams, +/- 329 grams ( 4 lb 13 oz). Weight Percentile for gestational age: 54 % IMPRESSION: 1. Single, live intrauterine gestation 33 weeks, 0 days by LMP. Today'sultrasound measurements correlate with a gestational age of 33 weeks 4days. Estimated weight is 2191 grams, +/- 329 grams ( 4 lb 13 oz)which correlates to 54 %. FRANCI by today's ultrasound is 05/31/2025. Interpreted by: Electronically signed by DINA FERNANDEZ II, MD, PHD [id number] 07:34:19 AM [facility] us Elsie ANN IMTanner OB US PROCEDURES Final Resul t * (ABNORMAL) ALL CBC WITH AUTO DIFF (03/28/2025 1:39 PM EDT) Only the most recent of2 resultswithin the time period is included. TBH WBC 15.9(H) 4.0 - 11.0 10 3/uL TBH TBH RBC 3.75(L) 4.20 - 5.40 10 6/uL TBH TBH HGB 11.2(L) 12.0 - 16.0 g/dL TBH TBH HCT 33.0(L) 36.0 - 48.0 % TBH TBH MCV 88.0 81.0 - 99.0 fL TBH TBH MCH 29.9 26.7 - 34.0 pg TBH TBH MCHC 33.9 29.9 - 35.2 g/dL TBH TBH RDW 12.5 11.0 - 15.0 % TBH TBH PLT 206 150 - 450 10 3/uL TBH TBH MPV 11.2 9.5 - 13.5 fL TBH NEUTROPHILS PERCENT AUTO 76.1(H) 43.0 - 75.0 % TBH LYMPHOCYTES PERCENT AUTO 13.6(L) 20.5 - 60.0 % TBH MONOCYTES PERCENT AUTO 8.3 1.7 - 12.0 % TBH TBH EO % 0.6(L) 0.9 - 7.0 % TBH BASOPHILS PERCENT AUTO 0.3 0.2 - 2.0 % TBH IMMATURE GRANULOCYTES PCT AUTO 1.1(H) 0.0 - 0.5 % TBH NEUTROPHILS ABSOLUTE AUTO 12.1(H) 1.4 - 6.5 10 3/uL TBH LYMPHOCYTES ABSOLUTE AUTO 2.2 1.2 - 3.8 10 3/uL TBH MONOCYTES ABSOLUTE AUTO 1.3(H) 0.3 - 0.8 10 3/uL TBH TBH EO # 0.1 0.0 - 0.7 10 3/uL TBH BASOPHILS ABSOLUTE AUTO 0.1 0.0 - 0.1 10 3/uL TBH IMMATURE GRANULOCYTES ABS AUTO 0.17(H) 0.00 - 0.03 10 3/uL TBH 03/28/2025 1:39 PM EDT 03/28/2025 1:42 PM EDT Narrative [facility] - 03/28/2025 1:47 PM EDT Amanda Estradao DO CLINIS[facility]NC Final Result [facility] * GLUCOSE 1 HOUR (03/18/2025 12:39 PM EDT) GLUCOSE 1 HOUR 86 <130 mg/dL TBH 03/18/2025 12:3 9 PM EDT 03/18/2025 12:49 PM EDT Narrative [facility] - 03/18/2025 1:17 PM EDT us Amanda Brand DO LAB BLOOD ORDERABLES Final [facility]ul t [facility] US OB INCOMPLETE ANATOMY (03/04/2025 9:35 PM EDT) Anatomical Region Laterality Modality Other 03/04/2025 9:35 PM EDT Narrative 03/04/2025 9:37 [place] [address] Ultrasound Report Signed Patient: SANA JENKINS MR#: [id number] : 2005 Acct:[id number] Age/Sex: 19 / F ADM Date: 03/04/25 Loc: US Attending Dr: Amanda Brand D.O. Ordering Physician: Amanda Brand D.O. Date of Service: 03/04/25 Procedure(s): US OB incomplete anatomy Accession Number(s): [id number] cc: Amanda Brand D.O.; Physician,Non-Staff M.Tomasz [address] [address] Patient Name: SANA JENKINS MRN: [id number] date: 2005 Sex: F Assigned Patient Location: US Current Patient Location: US Accession/Order Number: [id number] Exam Date: 03/04/2025 21:33 Report Date: 03/04/2025 [...] Brandon M.D. 03/04/2025 9:35 PM Dictation Location: [place] [address] Electronically authenticated by: [id number] Y Date: 03/04/2025 21:35 Dictated By: Yoseph Brandon D.O. Signed By: 03/04/252136 DD/ 34 TD/TT: Industrial Maintenance Mechanic: Procedure Note Radiology, Radiologist, MD - 03/04/2025 [place] [address] Ultrasound Report Signed Patient: SANA JENKINS MMR#: [id number] : 2005Acct:[id number] Age/Sex: 19 / FADM Date: 03/04/25 Loc: US Attending Dr: Amanda Brand D.O. Ordering Physician: Amanda Brand D.O. Date of Service: 03/04/25 Procedure(s): US OB incomplete anatomy Accession Number(s): [id number] cc: Amanda Brand D.O.; Physician,Non-Staff [place] [id number] Patient Name: SANA EJNKINS MRN: [id number] date: 2005 Sex: F Assigned Patient Location: US Current Patient Location: US Accession/Order Number: [id number] Exam Date: 03/04/2025 21:33 Report Date: 03/04/2025 21:35 At the request of: AMANDA BRAND DO Procedure: US OB incomplete anatomy Follow up obstetrical ultrasound for incomplete anatomy HISTORY: Prior suboptimal assessment of spine imaging Reason cephalic presentation with longitudinal lie. The heart flon109 bpm. Gestational age 26 weeks 6 days with estimated date of delivery 06/04/2025. There is adequate visualization of the spine. US/US OB incomplete anatomy IMPRESSION: Adequate visualization of spine. Impression dictated by: Yoseph Brandon M.D. 03/04/2025 9:35 PM Dictation Location: [place] [address] Electronically authenticated by: [id number] Y Date: 1:35 Dictated By: Yoseph Brandon D.O. Signed By:03/04/252136 DD/ 34 TD/TT: Industrial Maintenance Mechanic: us Amanda Cathie DO [facility] IMAGING Final Result from Last 3 Months Additional Health Concerns Active Problems Noted Date Diagnosed Date OB Reminders 11/20/2024 Insurance [employer] [place]
--- OUTSIDE RECORDS SUMMARY | 2025-05-09 14:57 | XMS_ITS | Clinical Summary ---
Author Organization [facility] Address [id number] [place] [address] Care Team Providers Care Youth Development Professional Name Role Phone Mandy Valentino ENSEMBLE MEMBER-MANUAL ARTS TEACHER Primary Care Prov ider Allergies Active Allergy [...] Negative Negative^N egative 06/26/2024 6:47 AM EDT [facility] Comment: Chlamydia trachomatis not detected by nucleic acid amplification. This does not exclude the possibility of infection because results are dependent on adequate specimen collection. Gonorrhoeae by PCR, Fluid Negative Negative^N egative 06/26/2024 6:47 AM EDT [facility] Comment: Neisseria gonorrhoeae not detected by nucleic acid amplification. This does not exclude the possibility of infection because results are dependent on adequate specimen collection. THINP 06/22/2024 5:50 AM EDT 06/22/2024 6:03 AM EDT Ryanne Trotter ENSEMBLE MEMBER-CNM MICROBIOLOGY - GENERA L ORDERABLES Final Result HEENA [facility] [address] [place] [address], [address] [place] [address] * Pap Smear (06/22/2024 5:50 AM EDT) 06/22/2024 5:50 AM EDT 06/22/2024 6:54 AM EDT Narrative [facility] - 07/14/2024 6:12 PM EDT [facility] [address] [place] [address] Gynecologic Cytology Consultation Patient Name:MONTY JENKINS:2005 (Age: 19)Gender:FTaken:4Reported:07/14/2024hysician(s):Ryanne Trotter, C.N.MFrancesca ([phone])Copy To: Rec. #:[id number]: #[id number] Final Cytologic Interpretation ThinPrep Pap Test (Cervical): Satisfactory for evaluation. A transformation zone component is present. NEGATIVE FOR INTRAEPITHELIAL LESION OR MALIGNANCY. tg/07/14/2024 Interpretation performed [place] [address], License number: [id number]. Electronically Signed Out By DANIAL Barba (ASCP) Date of Last Menstrual Period: 06/01/24 Other Clinical Conditions: Z12.4 Screening for malignant neoplasm of cervix Z11.3 Encntr screen for infections w sexl mode of transmiss Source of Specimen ThinPrep Pap Test (Cervical) Thin Prep Pap (RECREATIONAL AIDE) Fee Code(s): G0145 The Pap test is a screening test with an inherent, but low, probability of error. The Pap test is primarily effective for the diagnosis and prevention of squamous cell carcinoma. Regular screening is critical for prevention. ThinPrep liquid-based slides, which meet the [place] criteria for automated screening, have been screened by the ThinPrep Imaging System (as of 06/05/07) along with an additional manual rescreening by a air support control officer and, if indicated, by a pathologist. Ryanne Trotter APRN-CNM PATHOLOGY/CYTOLOGY OR DERABLES Final Result [facility] from Last 3 Months or Most Recently Relevant to Health Maintenance Insurance ANTHEM ANTHEM Care Teams Youth Development Professional Relationship Specialty Start Date End Date Mandy Valentino APRN-VINEET [id number] [place] [address] PCP - General Internal Medicine 01/07/22
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
== END 2025-05-09 14:54 | disposition home or self-care (01) ==
LOC: LAB 14:53
PROVIDERS: Visit Provider Physician Assistant
DX: Z34.93 Encounter for supervision of normal pregnancy, unspecified, third trimester (principal); Z3A.26 26 weeks gestation of pregnancy
CPT/HCPCS: 87081

== ENCOUNTER 2025-05-30 23:02 | Inpatient (IN) | payer BC, MEDICAID, SELFPAY ==
--- OUTSIDE RECORDS SUMMARY | 2025-05-30 23:06 | XMS_ITS | CCD ---
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 Name Role Phone Sita Webber Primary Care Provider DINA BURNS Attending Unavailable AMANDA, SITA Hurley Primary Care Unavailable Sita Webber Unavailable Unavailable Unavailable Sita Webber Primary Care Provider [phone] BARRERA RUEDA Admitting Unavailable BARRERA RUEDA Attending [...] LAGRANGE, MANDY WIN Referring Unavailabl e LAGRANGE, MNADY WIN Primary Care Unavailabl e RENEA, POLINA Referring Unavailable LAGRANGE, MANDY WIN Primary Care Unavailabl e Naeem Thomason Attending Unavailable Naeem Thomason Admitting Unavailable Blunt, Sita Hurley Primary Care Unavailable Unavailable Primary Care Provider Unavailabl e Haakon TUBE COREMAKER-TOUCH UP CARVER, Mandy Win Primary Care Prov ider CATHIE, VINICIUS Attending Unavailable MARTHA, ELSIE Attending Unavailable MARTHA, ELSIE Referring Unavailable CATHIE, VINICIUS Attending Unavailable CATHIE, VINICIUS Attending Unavailable MARTHA, ELSIE Attending Unavailable CATHIE, VINICIUS Attending Unavailable MARTHA, ELSIE Referring Unavailable MARTHA, ELSIE Attending Unavailable CATHIE, VINICIUS Attending Unavailable MARTHA, ELSIE Attending Unavailable CATHIE, VINCIIUS Attending Unavailable CATIEKELSEY MIKE Attending Unavailable CATHIE, VINICIUS Attending Unavailable Allergies Allergy Classification Reported Allergen(s) Allergy Type Date of Onset Reaction(s) Facility Penicillins (antibiotic) (2 sources) Amoxicillin Drug All[facility] (14 sources) Penicillins; Translations: [Penicillins] Allergy to drug (finding) 1 [facility] Other [place] [facility] (10 sources) Sulfonamides (Antibiotic); Translations: [Sulfa Drugs] Allergy to drug (finding) [facility] Work Phone: (20 sources) Amoxicillin; Translations: [amoxicillin] Drug Allergy 1 [facility] (3 sources) Penicillins Propensity to adverse reactions to drug 1 Anaphylaxis, Other (See Comments) [facility] Work Phone: (6 sources) Sulfonamides (Antibiotic); Translations: [SULFA (SULFONAMIDE ANTIBIOTICS)] Propensity to adverse reactions to drug (disorder) 9 Hives, Anaphylaxis, Other (See Comments) [facility] Repository (20 sources) cefdinir; Translations: [CEFDINIR] Drug Allergy 2 [facility] Rep[facility] (4 sources) Penicillin; Translations: [PENICILLIN G] Drug Allergy 9 Hives [facility] (1 source) Amoxicillin / Clavulanate; Translations: [Augmentin] Drug Allergy [facility] Repository (1 source) cefdinir; Translations: [Omnicef] Drug Allergy [facility] Repository (1 source) Penicillin; Translations: [penicillin] Drug Allergy [facility] Repository (1 source) Sulfonamides; Translations: [sulfonamides] Propensity to adverse reactions to drug (disorder) [facility] Repository (20 sources) Penicillins Propensity to adverse reactions 9 Anaphylaxis, Hives [facility] (20 sources) Sulfonamides (Antibiotic) Propensity to adverse reactions 9 Anaphylaxis, Hives [facility] Healthcare (2 sources) Amoxicillin-Pot Clavulanate Drug Allergy 5 [facility] Medications Current Medications Medication Drug Class(es) [...] / dextroamphetamine sulfate 5 mg oral tablet (10 sources) Central Nervous System Stimulant take 1 tablet by mouth in the morning amphetamine-dextro amphetamine (Adderall) 20 MG tablet Take 20 mg by mouth in the morning. Active calcium chloride 0.0014 meq/ml / potassium [...] 01/07/2022 Active clindamycin 10 mg/ml topical lotion (14 sources) Lincosamide Antibacterial Start: 05-01-2025 End: 05-01-2026 [...] every week Vitamin D (Ergocalciferol) 1.25 MG (71721 UT) Oral Capsule TAKE 1 CAPSULE BY [...] 04-06-2024 Episodic Diseases of white blood cells (4 sources) Leukocytosis; Translations: [Elevated white blood cell [...] pain] Episodic Other and delivery including normal (20 sources) ; Translations: [Encounter for supervision of normal , unspecified, unspecified trimester] 10-26-2024 Episodic Other screening for suspected conditions (not mental disorders or infectious disease) (9 sources) Encounter for screening for malignant neoplasm of cervix; Translations: [Cancer cervix screening status] Onset: 06-22-2024 06-22-2024 Episodic Other skin disorders (4 sources) Acne; Translations: [Other acne] 05-01-2025 Episodic [...] [35 weeks gestation of ] 05-01-2025 Episodic Residual codes; unclassified (2 sources) Gestation period, 37 weeks; Translations: [37 weeks gestation of ] 05-16-2025 Episodic Residual codes; unclassified (4 sources) Gestation period, 38 weeks; Translations: [38 weeks gestation of ] 05-23-2025 Episodic Sprains and strains (1 source) Strain [...] Range Facility Urinalysis macro (dipstick) panel (U)on 05-27-2025 Bilirubin, UA Negative Negative - 4(70) +++ mg/dL [facility] Blood, UA Negative Negative - 50 Ravinder/mcL [facility] Healthcare Clarity, UA Clear [facility] Color, UA Yellow [facility] Glucose, UA Negative Negative - 1999(110) ++++ mg/dL [facility] Interpretation and review of laboratory results Abnormal [facility] Ketones, UA Negative Negative - 160(16) ++++ mg/dL [facility] Leukocytes, UA Negative Negative - 500+++ Sadi/mcL [facility] Nitrite, UA Negative Negative - Positive [facility] pH, UA 6 5 - 9 [facility] Health[facility] e Protein, UA 1+ Negative - 1999(20) ++++ mg/dL [facility] Spec Grav, UA 1.025 1 - 1.03 [facility] Urobilinogen, UA 1.0 0.2 - 12 mg/dL [facility] e Urinalysis macro (dipstick) panel (U)on 05-23-2025 Bilirubin, UA Negative Negative - 4(70) +++ mg/dL [facility] Blood, UA Negative Negative - 50 Ravinder/mcL [facility] Healthcare Clarity, UA Clear [facility] Healthca re Color, UA Yellow [facility] Health[facility] e Glucose, UA Negative Negative - 1999(110) ++++ mg/dL [facility] Interpretation and review of laboratory results Abnormal [facility] Ketones, UA Negative Negative - 160(16) ++++ mg/dL [facility] Leukocytes, UA Positive Negative - 500+++ Sadi/mcL [facility] Comment on above: 1+ Nitrite, UA Negative Negative - Positive [facility] pH, UA 6 5 - 9 [facility] Healthcar e Protein, UA Negative Negative - 1999(20) ++++ mg/dL [facility] Healthcare Spec Grav, UA 1.02 1 - 1.03 [facility] care Urobilinogen, UA 1.0 0.2 - 12 mg/dL [facility] Urinalysis macro (dipstick) panel (U)on 05-16-2025 Bilirubin, UA Negative Negative - 4(70) +++ mg/dL [facility] Blood, UA Negative Negative - 50 Ravinder/mcL [facility] Healthcare Clarity, UA Clear [facility] Color, UA Yellow [facility] Glucose, UA Negative Negative - 1999(110) ++++ mg/dL [facility] Interpretation and review of laboratory results Abnormal [facility] Ketones, UA Negative Negative - 160(16) ++++ mg/dL [facility] Leukocytes, UA 1+ Negative - 500+++ Sadi/mcL [facility] Healthcare Nitrite, UA Negative Negative - Positive [facility] pH, UA 6 5 - 9 [facility] Protein, UA Negative Negative - 1999(20) ++++ mg/dL [facility] Spec Grav, UA 1.02 1 - 1.03 [facility] care Urobilinogen, UA 1.0 0.2 - 12 mg/dL [facility] Urinalysis macro (dipstick) panel (U)on 05-09-2025 Bilirubin, UA Negative Negative - 4(70) +++ mg/dL [facility] Blood, UA Negative Negative - 50 Ravinder/mcL [facility] Healthcare Clarity, UA Clear [facility] Color, UA Yellow [facility] Health[facility] e Glucose, UA Negative Negative - 1999(110) ++++ mg/dL [facility] Interpretation and review of laboratory results Abnormal [facility] Ketones, UA Negative Negative - 160(16) ++++ mg/dL [facility] Leukocytes, UA Positive Negative - 500+++ Sadi/mcL [facility] Nitrite, UA Negative Negative - Positive [facility] pH, UA 6 5 - 9 [facility] Protein, UA Negative Negative - 1999(20) ++++ mg/dL [facility] Spec Grav, UA 1.015 1 - 1.03 [facility] care Urobilinogen, UA 1.0 0.2 - 12 mg/dL [facility] Urinalysis macro (dipstick) panel (U)on 05-01-2025 Bilirubin, UA Negative Negative - 4(70) +++ mg/dL [facility] Blood, UA Negative Negative - 50 Ravinder/mcL [facility] Healthcare Clarity, UA Clear [facility] Color, UA Yellow [facility] Glucose, UA Negative Negative - 1999(110) ++++ mg/dL [facility] Interpretation and review of laboratory results Abnormal [facility] Ketones, UA Negative Negative - 160(16) ++++ mg/dL [facility] Leukocytes, UA Positive Negative - 500+++ Sadi/mcL [facility] Nitrite, UA Negative Negative - Positive [facility] pH, UA 7.5 5 - 9 [facility] Healthcar e Protein, UA Positive Negative - 2000(20) ++++ mg/dL [facility] Spec Grav, UA 1.015 1 - 1.03 [facility] Urobilinogen, UA 1.0 0.2 - 12 mg/dL [facility] Health[facility] e US OB FOLLOW UP TRANSABDOMIN [...] II, MD, PHD at 17-Apr-2025 07:34:19 AM [facility] Normal Not Available Comment on above: Order Comment: US OB SCAN FOR GROWTH Estimated Date of Delivery: 06/04/25 Gestational Age as of 04/02/2025: 31w0d Urinalysis macro (dipstick) panel (U)on 07-29-2025 Bilirubin, UA Negative Negative - 4(70) +++ mg/dL [facility] Blood, UA Negative Negative - 50 Ravinder/mcL [facility] Healthcare Clarity, UA Clear [facility] Color, UA Yellow [facility] Health[facility] e Glucose, UA Negative Negative - 1999(110) ++++ mg/dL [facility] Interpretation and review of laboratory results Abnormal [facility] Health[facility] re Ketones, UA Negative Negative - 160(16) ++++ mg/dL [facility] Leukocytes, UA Positive Negative - 500+++ Sadi/mcL [facility] Comment on above: Small Nitrite, UA Negative Negative - Positive [facility] pH, UA 6 5 - 9 [facility] Protein, UA Negative Negative - 1999(20) ++++ mg/dL [facility] Spec Grav, UA 1.015 1 - 1.03 [facility] Urobilinogen, UA 0.2 0.2 - 12 mg/dL [facility] Urinalysis macro (dipstick) panel (U)on 04-02-2025 Bilirubin, UA Negative Negative - 4(70) +++ mg/dL [facility] Blood, UA Negative Negative - 50 Ravinder/mcL [facility] Clarity, UA Clear [facility] Health[facility] re Color, UA Yellow [facility] Healthcar e Glucose, UA Negative Negative - 1999(110) ++++ mg/dL [facility] Interpretation and review of laboratory results Abnormal [facility] Healthca re Ketones, UA Positive Negative - 160(16) ++++ mg/dL [facility] Comment on above: Moderate Leukocytes, UA Negative Negative - 500+++ Sadi/mcL [facility] Nitrite, UA Negative Negative - Positive [facility] pH, UA 7.5 5 - 9 [facility] e Protein, UA Trace Negative - 1999(20) ++++ mg/dL [facility] Spec Grav, UA 1.015 1 - 1.03 [facility] Urobilinogen, UA 0.2 0.2 - 12 mg/dL [facility] ALL CBC WITH AUTO DIFFon BASOPHILS ABSOLUTE AUTO 0.1 [facility] Basophils/100 WBC (Bld) 0.3 % 0.2 - 2.0 % [facility] Eosinophils/100 WBC (Bld) 0.6 % Low 0.9 - 7.0 % [facility] Erythrocyte distribution width (RBC) [Ratio] 12.5 % 11.0 - 15.0 % [facility] Hematocrit (Bld) [Volume fraction] 33 % Low 36.0 - 48.0 % [facility] Healthcar e Hemoglobin (Bld) [Mass/Vol] 11.2 g/dL Low 12.0 - 16.0 g/dL [facility] IMMATURE GRANULOCYTES ABS AUTO 0.17 High [facility] Immature granulocytes/100 WBC (Bld) 1.1 % High 0.0 - 0.5 % [facility] Interpretation and review of laboratory results Abnormal [facility] re LYMPHOCYTES ABSOLUTE AUTO 2.2 [facility] Lymphocytes/100 WBC (Bld) 13.6 % Low 20.5 - 60.0 % [facility] MCH (RBC) [Entitic mass] 29.9 pg 26.7 - 34.0 pg [facility] MCHC (RBC) [Mass/Vol] 33.9 g/dL 29.9 - 35.2 g/dL [facility] MCV (RBC) [Entitic vol] 88 fL 81.0 - 99.0 fL [facility] MONOCYTES ABSOLUTE AUTO 1.3 High [facility] Monocytes/100 WBC (Bld) 8.3 % 1.7 - 12.0 % [facility] NEUTROPHILS ABSOLUTE AUTO 12.1 High [facility] Neutrophils/100 WBC (Bld) 76.1 % High 43.0 - 75.0 % [facility] Platelet mean volume (Bld) [Entitic vol] 11.2 fL 9.5 - 13.5 fL [facility] TBH EO # 0.1 [facility] TBH PLT 206 [facility] TB RBC 3.75 Low [facility] Healthcar e TBH WBC 15.9 High [facility] Healthcar e CLINIS[facility]NC [facility] Healthcar e ALL CBC WITH AUTO DIFFon BASOPHILS ABSOLUTE AUTO 0.1 [facility] Basophils/100 WBC (Bld) 0.3 % 0.2 - 2.0 % [facility] Eosinophils/100 WBC (Bld) 0.7 % Low 0.9 - 7.0 % [facility] Erythrocyte distribution width (RBC) [Ratio] 12.7 % 11.0 - 15.0 % [facility] Hematocrit (Bld) [Volume fraction] 34 % Low 36.0 - 48.0 % [facility] Hemoglobin (Bld) [Mass/Vol] 11.4 g/dL Low 12.0 - 16.0 g/dL [facility] IMMATURE GRANULOCYTES ABS AUTO 0.29 High [facility] Immature granulocytes/100 WBC (Bld) 1.6 % High 0.0 - 0.5 % [facility] Interpretation and review of laboratory results Abnormal [facility] LYMPHOCYTES ABSOLUTE AUTO 2.1 [facility] Lymphocytes/100 WBC (Bld) 11.6 % Low 20.5 - 60.0 % [facility] MCH (RBC) [Entitic mass] 30.2 pg 26.7 - 34.0 pg [facility] MCHC (RBC) [Mass/Vol] 33.5 g/dL 29.9 - 35.2 g/dL [facility] MCV (RBC) [Entitic vol] 89.9 fL 81.0 - 99.0 fL [facility] MONOCYTES ABSOLUTE AUTO 1.5 High [facility] Monocytes/100 WBC (Bld) 8.3 % 1.7 - 12.0 % [facility] NEUTROPHILS ABSOLUTE AUTO 14.1 High [facility] Neutrophils/100 WBC (Bld) 77.5 % High 43.0 - 75.0 % [facility] Platelet mean volume (Bld) [Entitic vol] 11.4 fL 9.5 - 13.5 fL [facility] TBH EO # 0.1 [facility] TBH PLT 210 [facility] TBH RBC 3.78 Low [facility] TBH WBC 18.1 High [facility] US OB INCOMPLETE ANATOMYon 0 03-04-2025 [place] [address] Ultrasound Report Signed Patient: SANA JENKINS MR#: [id number] : 2005 Acct:[id number] Age/Sex: 19 / F ADM Date: 03/04/25 Loc: US Attending Dr: Vinicius Brand D.O. Ordering Physician: Vinicius Brand D.O. Date of Service: 03/04/25 Procedure(s): US OB incomplete anatomy Accession Number(s): [id number] cc: Vinicius Brand D.O.; Physician,Non-Staff M.Tomasz The [address] [address] Patient Name: SANA JENKINS MRN: [facility]:[id number] date: 2005 Sex: F Assigned Patient Location: US Current Patient Location: US Accession/Order Number: [id number] Exam Date: 03/04/2025 21:33 Report Date: 03/04/2025 [...] Brandon M.D. 03/04/2025 9:35 PM Dictation Location: [place] [address] Electronically authenticated by: [id number] Y Date: 03/04/2025 21:35 Dictated By: Yoseph Brandon D.O. Signed By: 03/04/252136 DD/ 34 TD/TT: Custom Clothier: [facility] Radiology, Radiologist, - 03/04/2025 [place] [address] Ultrasound Report Signed Patient: SANA JENKINS MR#: [id number] : 2005 Acct:[id number] Age/Sex: 19 / F ADM Date: 03/04/25 Loc: US Attending Dr: Vinicius Brand D.O. Ordering Physician: Vinicius Brand D.O. Date of Service: 03/04/25 Procedure(s): US OB incomplete anatomy Accession Number(s): [id number] cc: Vinicius Brand D.O.; Physician,Non-Staff Jo The [address] [address] Patient Name: SANA JENKINS MRN: [facility]:[id number] date: 2005 Sex: F Assigned Patient Location: Current Patient Location: US Accession/Order Number: [id number] Exam Date: 03/04/2025 21:33 Report Date: 03/04/2025 [...] visualization of spine. Impression dictated by: Yoseph Bradnon M.D. 03/04/2025 9:35 PM Dictation Location: [facility] [employer] Electronically authenticated by: [id number] Y Date: 03/04/2025 21:35 Dictated By: Yoseph Brandon D.O. Signed By: 03/04/252136 DD/ 34 TD/TT: Custom Clothier: [facility] Radiology Study observation (narrative) [facility] US OB INCOMPLETE ANATOMYOrde red By: Radiologist Radiology on 03-04-2025 [facility] [employer] Work Phone: Urinalysis macro (dipstick) panel (U)on 02-13-2025 Bilirubin, UA Negative Negative - 4(70) +++ mg/dL [facility] Blood, UA Negative Negative - 50 Ravinder/mcL [facility] Clarity, UA Clear [facility] [employer] re Color, UA Yellow [facility]car e Glucose, UA Negative Negative - 1999(110) ++++ mg/dL [facility] Interpretation and review of laboratory results Normal [facility] [employer] re Ketones, UA Negative Negative - 160(16) ++++ mg/dL [facility] Leukocytes, UA Moderate Negative - 500+++ Sadi/mcL [facility] Nitrite, UA Negative Negative - Positive [facility] pH, UA 6 5 - 9 [facility] Protein, UA Trace Negative - 1999(20) ++++ mg/dL [facility] Spec Grav, UA 1.025 1 - 1.03 [facility] Urobilinogen, UA 0.2 0.2 - 12 mg/dL [facility] AFP, SERUM, OPEN SPINA BIFID Aon 01-17-2025 AFP MOM 0.90 . [facility] Doc[employer]akcar e AFP VALUE 46.8 ng/mL . [facility] Healthcar e COMMENT: Comment . [facility] Therapeutics[facility] e Comment on above: Ching Rodriguez , Ph.D., [facility] Director References: Available Upon Request. Multiples Of Median Cutoffs For AFP Elevations Myers 2.5 Black 2.8 IDD 2.0 Twins 4.5 Abbreviation Definitions IDD - Insulin Dep Diabetes OSBR - Open Spina Bifida Risk For further inquiries contact [employer] at [phone]. This test was developed and its performance characteristics determined by [facility]. It has not been cleared or approved by the Food and Drug Administration. Performed at: [facility] [place], [place] [id number] Afternoon Nanny: Iesha Graham [facility], Phone: [phone] GEST. AGE ON COLLECTION DATE 19.9 . weeks [facility] GESTAT. AGE BASED ON LMP . [facility] [employer] Comment on above: Recalculations are n ot recommended when gestational dating by LMP and ultrasound are within 10 days. INSULIN DEP DIABETES No . [facility] [employer] [employer] INTERPRETATION Comment . [facility] Ela rasheed Comment on above: Interpretation: Scre [...] Customer Services to discuss available options. The [employer] recommends amniocentesis be offered to women age 35 and older. [age] [facility] [employer] [employer] [facility] MULTIPLE GESTATION No . [facility] [place] [address] . SHON rasheed RACE . [facility] [employer] RESULTS Report . [facility] [employer]akcar e TEST RESULTS: Negative . [facility] [employer] [facility] WEIGHT 169 . lbs [facility] DocuSpeakcar e N N LMP [id number] 16 N 1 Y 169 N N N N N White/ [facility] Located within [facility] e IGP,APTIMA HPV,AGE GDLNon AGE GDLN ACOG TESTING Note . [facility] Comment on above: TESTS RESULT FLAG [facility] REF RANGE LAB Clinician Provided Cytology Information Source.............Cervix No. of containers..01 ThinPrep Vial Age Algo ACOG Deepthi... FLAG LEGEND: L-Low Normal,H-High Normal,LL-Alert Low,HH-Alert High <-Panic Low,>-Panic High,A-Abnormal,AA-Critical Abnormal Performed at: 01 =G [facility] [address] Radha Cosby MD, IGP, RFX APTIMA HPV ASCU Note . [facility] Comment on above: TESTS RESULT FLAG [facility] REF RANGE LAB DIAGNOSIS: 02 NEGATIVE FOR INTRAEPITHELIAL LESION OR MALIGNANCY. FUNGAL ORGANISMS MORPHOLOGICALLY CONSISTENT WITH JANNETH SPECIES ARE PRESENT. Specimen adequacy: 02 Satisfactory for evaluation. Endocervical and/or squamous metaplastic cells (endocervical component) are present. Performed by: 02 Marta Feliz, Environmental Services Worker (ASCP) . 02 Note: Note 03 The Pap [...] <-Panic Low,>-Panic High,A-Abnormal,AA-Critical Abnormal Performed at: 02 [facility] [address] [place] [address] Tato Jacobo MD, 03 WB [facility] [address] [address] Radha Cosby MD, Performed at: =G - [facility] [address] [id number] Afternoon Nanny: Radha Cosby MD, Phone: [phone] Performed at: CYT - [facility] [address] [place], [place] [id number] Afternoon Nanny: Tato Jacobo MD, Phone: [phone] SPATULA-ALONE CERVIX CLIN[facility] Healthcar e RECURRENT VAGINITIS (HTRX)on 12-19-2024 ATOPOBIUM VAGINAE 0 [facility] ATOPOBIUM VAGINAE Not detected [facility] BVAB 2,3 (BACTERIAL VAGINOSIS ASSOCIATED BACTERIA 2, [...] II, MD, PHD at 20-Jan-2025 08:54:08 PM [facility] Normal Not Available Comment on above: Order Comment: US OB ANATOMY SINGLE W US OB CERVICAL LENGTH Estimated Date of Delivery: 06/04/25 Gestational Age as of 12/18/2024: 16w0d Urinalysis macro (dipstick) panel (U)on 12-18-2024 Bilirubin, UA Negative Negative - 4(70) +++ mg/dL [facility] Blood, UA Negative Negative - 50 Ravinder/mcL [facility] Clarity, UA Cloudy [facility] [employer] re Color, UA Yellow [facility] Glucose, UA Negative Negative - 1999(110) ++++ mg/dL [facility] Interpretation and review of laboratory results Abnormal [facility] re Ketones, UA Negative Negative - 160(16) ++++ mg/dL [facility] Leukocytes, UA Positive Negative - 500+++ Sadi/mcL [facility] Comment on above: large Nitrite, UA Negative Negative - Positive [facility] pH, UA 7 5 - 9 Located within [facility] e Protein, UA Positive Negative - 1999(20) ++++ mg/dL [facility] Comment on above: 30 Spec Grav, UA 1.025 1 - 1.03 [facility] Urobilinogen, UA 0.2 0.2 - 12 mg/dL [facility] Health[facility] e BOX TESTon 11-20-2024 BOX TEST SENT OUT OBIE [facility] BOX1 OBIE Located within [facility] e BOX2 11/20/24 [facility] Located within [facility] e Urinalysis macro (dipstick) panel (U)on 11-20-2024 Bilirubin, UA Negative Negative - 4(70) +++ mg/dL [facility] Blood, UA Negative Negative - 50 Ravinder/mcL [facility] Clarity, UA Clear [facility] re Color, UA Yellow [facility] Glucose, UA Negative Negative - 1999(110) ++++ mg/dL [facility] Interpretation and review of laboratory results Abnormal [facility] re Ketones, UA Negative Negative - 160(16) ++++ mg/dL [facility] Leukocytes, UA Negative Negative - 500+++ Sadi/mcL [facility] Nitrite, UA Negative Negative - Positive [facility] pH, UA 7.5 5 - 9 [facility] Protein, UA Trace Negative - 1999(20) ++++ mg/dL [facility] Spec Grav, UA 1.02 1 - 1.03 [facility] Urobilinogen, UA 0.2 0.2 - 12 mg/dL [facility] HCG ( test) Ql (U)o n 10-26-2024 Interpretation and review of laboratory results Abnormal [facility] Doc[employer] re Preg Test, Ur Positive Negative [facility] Health[facility] e US OB TRANSVAGINALon 025 US [...] II, MD, PHD at 29-Oct-2024 09:11:12 AM [facility] Normal Not Available Comment on above: Order Comment: US OB TRANSVAGINAL No LMP recorded. Urinalysis macro (dipstick) panel (U)on 10-26-2024 Bilirubin, UA Negative Negative - 4(70) +++ mg/dL [facility] Blood, UA Negative Negative - 50 Ravinder/mcL [facility] Clarity, UA Clear [facility] re Color, UA Yellow [facility] Glucose, UA Negative Negative - 1999(110) ++++ mg/dL [facility] Interpretation and review of laboratory results Abnormal [facility] re Ketones, UA Negative Negative - 160(16) ++++ mg/dL [facility] Leukocytes, UA Positive Negative - 500+++ Sadi/mcL [facility] Comment on above: small Nitrite, UA Negative Negative - Positive [facility] pH, UA 6 5 - 9 [facility] Healthcar e Protein, UA Trace Negative - 1999(20) ++++ mg/dL [facility] Spec Grav, UA 1.03 1 - 1.03 [facility] Urobilinogen, UA 0.2 0.2 - 12 mg/dL [facility] Coding Summaryon 07-16-2024 Coding Summary HTMLBase 64 HtbgtvopDHx5cNz+PGhlYW Q+AR2AURIwZ03kpIWufY3s J8LJYKlWFcieYNJHLShKYv EfntIcMJ2goARnEJCe IC8+ZY4dKWBkSjslaPJgx5 Z5gSL9C86crj2aGUkwtXN8 GLIlQmGmyllga6manXa9FH cuNmluOyBt YRKtaZ67XIM8bC02Xh71dM WaqCTfd7pikPu1BaNvNDUn VMM4uTdbKVskz5UcSMPlD5 4xlYMtl0N3 NSSgeVbkhTAxHtUmuNI4iF 8wFCzscwjpj8oddlyzVun0 ja32tTHkq4L4wOC5O6Gxlh R1PWSfkLSl IiaotRXYkS8xzncbw8jwho tnNqJsKCEmBYq8WWr0LZWa tOnyZtAsMF01GQM5GORvbp HbN7XxZIYi yGczGfJ4e8Z3Vg6XM2KFFf nsJ0HLEQHWQTlesOI+PC90 dz76U8GrJpdyWlm3FUGkJJ D3oAN1jD5j WLPxLOyeq1G0dIA2E2Gddc Jdda6tj3dtEBDlLHfgI68r qNYib7T4TQRtxRE0GUFakH qiTmLlvZ05 Oyc+LELkmKkjm6YvYfojs0 ejl3oajYu8UjqeMJHcqnFw jYyhKIL3o1ZiQh2kINHkcW P0nUC8zH4h EkYvOgA5XWdnL751EoFepE JmIvotV54oT1HvaMW+PHRy Foj4LSVpxSphXQ5oD0OjNO RpbmctbGVm jLliBJ7kURXtlgheLFXggE 6wTPEkP0w5UcHyKaW7QPsl O0BrGCRovcalJm65gN7rCg JcDpC9NQil C9AxzfJ8UDThsCIlQFjtOQ T5N22px7Y1JPLsJXCrONO0 zRH2mQ3wkTikcdurcYPllD sgdmVydGlj UHajVOemK038QITlvArjLn NvZGluZyBEYXRlOiAgMTAv MjgvMjAyNDwvdGQ+PHRkIH Y9pPxsIXUo sUMsTNhjEw8tbUcnaAsyBI 2aMSQnsgttZEHrgD9yTPEh xVYqgLupKA6qMROoazsza5 76SuDqNKL6 WERtoGNrP3RtjS6qNsGzRK IsCDEkT3BegWYvGDsaT699 QIjsWwS7GGAzfiLfG1OoJQ FsaWduOiB0 x1H0Sx3Zv3QeuwcxL0HvsV PvQhLuBfdfKLf7K7BfEtar dHI+AE45BCOaWN10MNm7VQ N2xSpiRFcd XFOqP1WwvH0kBvQgJLGcFG RkOyc+PHRhYmxlIHdpZHRo RHosPOGiJbCdoXdaBF5aPz 9yZGVyLWNv pVjwwCBdUkNaw5thZVLnSQ igHE9ibJazZ6MdnJP8XMXs r6r0Qd82A22xM9JgnPS+PG BufAL4oLW4 iD6iFsMjIsJ0YHnkH810Mi MkfNNyQjpnj2elq3xczXr5 SwP0DUYaeyGdaTmzFCD2y6 KcBn29H82x IHdpZHRoPSIxNSUiIHZhbG yjsz0kjT2eZf7+PGNvbCB3 dJV7iZ9tRkLuSjF5IMbbN1 49InRvcCIv Fwsmc3mny8nveSw6BrQnND GvsbSclXciPAA1u6IeZa78 S9DldZsas8NgTkd8la11kC Fbc5K5oBU7 K7KrJUEzxxdyqCNymCqjNN 6yPJFsirgwGIQznD6rUTOt E6t1PnXkIyN8KTltN9Bduo J9TZFjqYZr VJYniNIZhA4qdvdud7wxmk aySdQcTPZpRYg0NVa5UEZu lXaxSaBfZZA1KnY7MRT8zB QurP4uzJly xgectA9rByp+BHJ8qSDgvA GVUN1lPdhonSL+PHRkIHN0 uPmpUBplIIXvaZ2fYIOvX8 m0XqGtArF1 CAxjV2EnalH6MJTuzAVpCI ZcmVMIhY2ylutdc0mtrduv GiBqPACcYQg8BJn6OXUpnY duOiBsZWZ0 VmI2MRS7gIZssU0nbDhsmj iriA9aEua+QmlydGggRGF0 XFl5J9TfTuq8UIOghInzAE 0ncGFkZGlu Ld7ovIbtwAluFN6dTNEfdi mxk004WlEfy1ixVRLnmQKh MLugJMG6N58dn5Y9NUFuRS LbABH5sPD0 dS8seWykblwmlAOmrPdkkl UavNpbDEdaRPxmV180NJBp lOihFcFiAJp9N5YcTal5TC QcwYqnIO9u tOAlQOzqVo7rvMmgmOetPS 4cNSFkfedum201HbGzx8yy WXGkuWJqDHvjJWZ5Q69si7 M8UQFaWUUa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 Crash Specialty Diagnoses / Procedures Referred By Moo t Referred To Contact Diagnoses Closed displaced fracture of proximal phalanx of left little finger, initial encounter LEFT SMALL FINGER PROXIMAL PHALANX FRACTURE Procedures OH PRQ SKELETAL FIXJ METACARPAL FX EACH BONE LEFT SMALL FINGER CLOSED REDUCTION PERCUTANEOUS PINNING VERSUS OPEN REDUCTION INTERNAL FIXATION LEFT SMALL FINGER PROXIMAL PHALANX FRACTURE. SUPINE, DIGITAL BLOCK, C-ARM, K-WIRES, SYNTHES EQUIPMENT VA HAND SET. [facility] Barrera Rueda, [address] [place] [address] [place] [id number] [facility] [address] [place] [address] Referral ID Status Reason Start Date Expiration Date Visits Re quested Visits Authorized [id number] 1 1 Reason Comments Amenorrhea Reason Comments Contraception Reason Comments Gynecologic Exam Reason Comments Routine Visit INFORMATION SOURCE (unrecogn ized section and content) DATE CREATED AUTHOR 01/25/2021 [facility] DATE CREATED AUTHOR AUTHOR'S ORGANIZ ATION 12/19/2022 [facility] DATE CREATED AUTHOR AUTHOR'S ORGANIZ ATION 01/10/2023 [facility] DATE CREATED AUTHOR AUTHOR'S ORGANIZ ATION 02/27/2023 [employer] DATE CREATED AUTHOR AUTHOR'S ORGANIZ ATION 02/27/2023 [facility] DATE CREATED AUTHOR AUTHOR'S ORGANIZ ATION 02/27/2023 [facility] DATE CREATED AUTHOR AUTHOR'S ORGANIZ ATION 08/14/2023 [facility] DATE CREATED AUTHOR AUTHOR'S ORGANIZ ATION 01/15/2024 [facility] DATE CREATED AUTHOR AUTHOR'S ORGANIZ ATION 06/24/2024 [facility] DATE CREATED AUTHOR AUTHOR'S ORGANIZ ATION 07/15/2024 [facility] DATE CREATED AUTHOR AUTHOR'S ORGANIZ ATION 07/17/2024 [facility] DATE CREATED AUTHOR AUTHOR'S ORGANIZ ATION 05/29/2025 [facility] dical Specialists EPIC Scheduled Active and [...] Care Teams (unrecognized sec tion and content) 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 [employer] [facility]. provides no warranty or guarantee of the accuracy or completeness of information in this document.
[2025-05-31] VITALS (66 sets, daily range): BP systolic 93–151; BP diastolic 46–82; PULSE 60–127; TEMP 35.9–37.7
[2025-05-31] MEDS: OXYTOCIN/0.9 % SODIUM CHLORIDE 10 UNITS/500 ML PLAST..BAG 6 UNIT IV (00:06)
[2025-05-31 00:08] LABS: Hematocrit 32.6 % (36.0-48.0); Hemoglobin 10.8 g/dL (12.0-16.0); Mean Corpuscular HGB Conc 33.1 g/dL (29.9-35.2); Mean Corpuscular Hemoglobin 27.3 pg (26.7-34.0); Mean Corpuscular Volume 82.3 fL (81.0-99.0); Platelet Count 239 10^3/uL (150-450); Red Blood Count 3.96 10^6/uL (4.20-5.40); White Blood Count 16.4 10^3/uL (4.0-11.0)
[2025-05-31] MEDS: 0.9 % SODIUM CHLORIDE 1,000 ML 125 ML IV ×3 (00:09→12:56)
[2025-05-31] MEDS: VANCOMYCIN HCL 1,000 MG in 0.9 % SODIUM CHLORIDE 250 ML 250 MG IV ×2 (00:09→12:32)
[2025-05-31 00:15] LABS: Cannabinoid Screen Urine POSITIVE (NEGATIVE); Methamphetamines Screen Urine NEGATIVE (NEGATIVE); Tricyclic Antidepressant Urine NEGATIVE (NEGATIVE)
[2025-05-31] MEDS: 0.9 % SODIUM CHLORIDE 1,000 ML 1000 ML IV (11:19)
[2025-05-31] MEDS: ROPIVACAINE HCL/PF 400 MG/200 ML PREMIX 6 MG EPIDURAL (12:35)
--- NOTE | 2025-05-31 14:18 | SWNOTE1 ---
SW consulted for THC use. Pt has not delivered at this time. SW did call and speak with nurse. If pt delivers and is discharged over the weekend. ESSIE will call pt at home on Tuesday.
[2025-05-31] MEDS: OXYTOCIN/0.9 % SODIUM CHLORIDE 10 UNITS/500 ML PLAST..BAG 36 UNIT IV (15:55)
--- NOTE | 2025-05-31 18:45 | PM.OBPRCVD ---
Procedure Intrapartal events: None Induction method: per pitocin protocol Delivery augmentation: rupture of membranes and pitocin Delivery monitor: external FHT and external uterine Route of delivery: Episiotomy Description: midline L&D Laceration Description: periurethral - 1st degree and perineal - 2nd degree Delivery repair: Vicryl Estimated blood loss (mL): 350 Anesthesia type: Epidural Disposition: floor Infant Delivery date: 05/31/25 Gender: male presentation: vertex Placental delivery description: Spontaneous cord description: 3 Vessels
[2025-05-31] MEDS: LIDOCAINE HCL 1% 200 MG/20 ML MDV INJ (19:20)
[2025-05-31] MEDS: OXYTOCIN/0.9 % SODIUM CHLORIDE 20 UNITS/1,000 ML PLAST..BAG 125 UNIT IV (19:21)
[2025-05-31] MEDS: BENZOCAINE/MENTHOL 85 GRAM SPRAY BOTTLE 1 APPLIC TOPICAL (20:57)
[2025-05-31] MEDS: ACETAMINOPHEN 325 MG TABLET 650 MG PO (20:57)
[2025-05-31] MEDS: GLYCERIN/WITCH HAZEL PADS 1 PAD TOPICAL (20:58)
[2025-05-31] MEDS: IBUPROFEN 600 MG TABLET PO (23:29)
[2025-06-01] MEDS: ACETAMINOPHEN 325 MG TABLET 650 MG PO (04:40)
[2025-06-01 05:12] VITALS: BP 134/76; PULSE 127; TEMP 36.9
[2025-06-01 06:50] LABS: Hemoglobin 7.7 g/dL (12.0-16.0); Immature Granulocytes Abs Auto 0.14 10^3/uL (0.00-0.03); Immature Granulocytes Pct Auto 0.9 % (0.0-0.5); Lymphocytes Absolute Auto 2.4 10^3/uL (1.2-3.8); Mean Corpuscular HGB Conc 32.9 g/dL (29.9-35.2); Mean Corpuscular Hemoglobin 27.4 pg (26.7-34.0); Mean Corpuscular Volume 83.3 fL (81.0-99.0); Platelet Count 179 10^3/uL (150-450); Red Blood Count 2.81 10^6/uL (4.20-5.40); White Blood Count 14.9 10^3/uL (4.0-11.0)
[2025-06-01 06:52] LABS: Hematocrit 23.4 % (36.0-48.0)
--- NOTE | 2025-06-01 08:53 | PM.OBPN ---
OB - PN: Subj Subjective Patient comments: no complaints and pain well controlled [place] status: doing well Exam Constitutional Vital Signs, click to edit/add: Last Vital Signs Temp 98.5 F 06/01/25 05:12 Pulse 127 H 06/01/25 05:12 Resp 18 05/31/25 12:21 BP 134/76 06/01/25 05:12 O2 Del Method Room Air 06/01/25 05:00 Documenting provider has reviewed patient's vital signs: yes Common normals: no apparent distress Respiratory Common normals: normal respiratory effort and clear to auscultation bilaterally Cardio Common normals: regular rate and regular rhythm GI Common normals: Normal to inspection, nondistended, normoactive bowel sounds present Extremity Common normals: no clubbing, cyanosis or edema and no calf tenderness Results Labs Labs: Short CBC 06/01/25 Range/Units 06:40 WBC 14.9 H (4.0-11.0) 10^3/uL Hgb 7.7 L (12.0-16.0) g/dL Hct 23.4 L* (36.0-48.0) % Plt Count 179 (150-450) 10^3/uL OB - PN: A/P Plan - Vaginal Delivery day: 1 Plan: routine care Time Spent with Patient Time: Total time spent is greater than 50% in coordination of care (as documented) at patient's floor/unit and/or counseling patient: Total time spent with greater than 50% in coordination of care (as documented) at patient's floor/unit and/or counseling patient: less than 15 minutes
[2025-06-01] MEDS: DOCUSATE SODIUM 100 MG CAPSULE PO ×2 (08:58→22:09)
[2025-06-01] MEDS: IBUPROFEN 600 MG TABLET PO ×2 (08:59→22:09)
[2025-06-01 09:00] VITALS: TEMP 36.4
[2025-06-01 09:01] VITALS: BP 122/68; PULSE 86
--- NOTE | 2025-06-01 11:36 | PC.NURSE ---
pt educated on , latching, hand expression and feeding in side lying position. difficult to latch to breast d/t sucking on tongue and not opening mouth wide enough. Once licks hand expressed colostrum off breast opens wide enough to latch and sustains latch. Mother educated on importance of proper latch and positioning and verbalizes understanding. Denies any discomfort while actively nursing. Occasional swallows noted with sucking. pt and family members ask how they know if infant is actually getting anything, nurse educates on I&O is monitored, along with if is appearing full after feedings, and weight is monitored. As of now infants I& O's are WNL and weight is WNL.
[2025-06-01 16:37] VITALS: BP 128/82; PULSE 90
[2025-06-01 16:38] VITALS: TEMP 36.1
[2025-06-01 16:55] VITALS: PULSE 66; TEMP 36.4
[2025-06-01] MEDS: GLYCERIN/WITCH HAZEL PADS 1 PAD TOPICAL (22:08)
[2025-06-02] VITALS (7 sets, daily range): BP systolic 110–123; BP diastolic 54–69; PULSE 64–90; TEMP 36.8–36.9
[2025-06-02 07:05] LABS: Hemoglobin 7.1 g/dL (12.0-16.0); Immature Granulocytes Abs Auto 0.13 10^3/uL (0.00-0.03); Immature Granulocytes Pct Auto 1.1 % (0.0-0.5); Lymphocytes Absolute Auto 2.5 10^3/uL (1.2-3.8); Mean Corpuscular HGB Conc 32.6 g/dL (29.9-35.2); Mean Corpuscular Hemoglobin 27.2 pg (26.7-34.0); Mean Corpuscular Volume 83.5 fL (81.0-99.0); Platelet Count 184 10^3/uL (150-450); Red Blood Count 2.61 10^6/uL (4.20-5.40); White Blood Count 11.7 10^3/uL (4.0-11.0)
[2025-06-02 07:18] LABS: Hematocrit 21.8 % (36.0-48.0)
[2025-06-02] MEDS: IBUPROFEN 600 MG TABLET PO ×3 (08:04→23:18)
[2025-06-02] MEDS: DOCUSATE SODIUM 100 MG CAPSULE PO ×2 (08:04→20:16)
--- NOTE | 2025-06-02 14:30 | PM.OBPN ---
OB - PN: Subj Subjective Patient comments: no complaints and pain well controlled status: doing well Exam Constitutional Vital Signs, click to edit/add: Last Vital Signs Temp 98.2 F 06/02/25 08:23 Pulse 66 06/02/25 08:23 Resp 16 06/02/25 08:23 BP 119/65 06/02/25 08:02 O2 Del Method Room Air 06/02/25 08:23 Documenting provider has reviewed patient's vital signs: yes Common normals: no apparent distress Respiratory Common normals: normal respiratory effort and clear to auscultation bilaterally Cardio Common normals: regular rate and regular rhythm GI Common normals: Normal to inspection, nondistended, normoactive bowel sounds present Extremity Common normals: no clubbing, cyanosis or edema and no calf tenderness Results Labs Labs: Short CBC 06/02/25 Range/Units 06:49 WBC 11.7 H (4.0-11.0) 10^3/uL Hgb 7.1 L (12.0-16.0) g/dL Hct 21.8 L* (36.0-48.0) % Plt Count 184 (150-450) 10^3/uL OB - PN: A/P Plan - Vaginal Delivery day: 2 Plan: routine care Time Spent with Patient Time: Total time spent is greater than 50% in coordination of care (as documented) at patient's floor/unit and/or counseling patient: Total time spent with greater than 50% in coordination of care (as documented) at patient's floor/unit and/or counseling patient: less than 15 minutes
[2025-06-02] MEDS: ACETAMINOPHEN 325 MG TABLET 650 MG PO (20:15)
[2025-06-02] MEDS: GLYCERIN/WITCH HAZEL PADS 1 PAD TOPICAL (20:15)
[2025-06-02] MEDS: BENZOCAINE/MENTHOL 85 GRAM SPRAY BOTTLE 1 APPLIC TOPICAL (20:16)
--- NOTE | 2025-06-03 15:24 | SWNOTE1 ---
SW consulted for positive THC drug screen on admission. SW met with pt to discuss positive drug screen on admission. Pt was discharged yesterday, but baby was here for an extra day due to baby not eating well or latching on during breast feeding. Pt voiced baby was doing much better today and gets to be discharged today. Pt lives at home and father of baby is transitioning in to the home with them. This is her first child. She does have everything she needs at home for baby. She voiced she also has good support between families/friends. ESSIE spoke with her about marijuana use. Pt voiced she smoked it during because she could not keep anything. Marijuana helped with her appetite and nausea. She has no plans on continuing use once home and she does not have a medical marijuana card. ESSIE did advise that SW is mandated drying can worker and has to call in report to [facility] CPS. ESSIE did let pt know if they decided to open case, they will contact pt directly. At this time pt has no further questions. Report call in to [facility] CPS. HIPAA form completed and sent to Judith Conner.
== END 2025-06-02 23:48 | disposition home or self-care (01) | DRG 807 ==
PROVIDERS: Admitting Provider Obstetrics & Gynecology; Visit Provider Obstetrics & Gynecology
DX: O99.824 Streptococcus B carrier state complicating childbirth (principal); Z37.0 Single live birth; O26.893 Other specified pregnancy related conditions, third trimester; Z67.11 Type A blood, Rh negative; O99.324 Drug use complicating childbirth; F12.90 Cannabis use, unspecified, uncomplicated; O70.1 Second degree perineal laceration during delivery; Z3A.39 39 weeks gestation of pregnancy
CPT/HCPCS: 36415; 51702; 59050; 59410; 80307; 80349; 85025; 85027; 86850; 86900; 86901; J2300; J2795; J3373

== ENCOUNTER 2025-06-05 08:14 | Outpatient (OUT) | payer BC, MEDICAID, SELFPAY ==
--- NOTE | 2025-06-05 13:18 | PC.NURSE ---
Sana, GARRETTArnel Andre and 5 day old Baljinder arrive for follow up. Parents state are doing well, tired but expected to be tired. Sana States feels well, no complaint with recovery. Milk in and nipples intact. VSS and assessment WNL. Reviewed care of perineum as is tender due to stitches. to be seen by PCP this afternoon. Baby has had 10 diaper changes in last 24 hours. Wets frequently and stools frequently. Feeds at breast every 2 hours, taking milk from both breasts. Latching positions discussed and understands importance of positioning for easier latch and maintaining latch. Father very excited with baby, hands on and cuddles baby close. Baby with VSS and assessment WNL. Normal rash noted on face, trunk and legs. Parents worried. Discussion on normal NB appearance and care. Parents have no further questions. Infant did not feed today as fed just prior to arrival. Mom aware to call for needs and of [facility]OMS group. Home at this time.
[2025-06-05 13:19] VITALS: BP 128/77; PULSE 88; TEMP 36.9; O2SAT 98
== END 2025-06-05 13:23 | disposition home or self-care (01) ==
LOC: FBCO 08:15
PROVIDERS: Visit Provider Obstetrics & Gynecology
DX: Z39.1 Encounter for care and examination of lactating mother (principal)